=== PATIENT | female | born 1950 | race African-American/Black ===

== ENCOUNTER 2016-09-06 13:58 | Inpatient (IN) | payer OTHER ==
--- NOTE | 2016-09-06 15:04 | PDOC ---
History of Present Illness - General History Source: Patient Exam Limitations: No Limitations - History of Present Illness Initial Comments: 09/06/16 16:48 The patient is a 65 year old female, with a significant past medical history of Breast CA (s/p mastectomy), DM, and HTN who presents to the emergency department with for right lower extremity DVT after an Ultrasound with her PCP. The patient reports having a recent long travel, where she was sitting for an extended period of time. She reports 3 weeks ago traveling from [place] to [place], but notes having the pain in her LEs a couple of weeks before her trip. The patient reports having pain in both of her lower extremities along with swelling. She denies having a previous blood clots. She denies recent fevers, chills, headache or dizziness. She denies recent nausea, vomit, diarrhea or constipation. She denies recent dysuria, frequency, urgency or hematuria. She denies recent chest pain, hemoptysis, cough, or shortness of breath. Allergies: NKA Past surgical history: See HPI. Hysterectomy. Social history: Nonsmoker. Denies EtOH use and drug use. Primary Care Physician: <Pancho Thomson - Last Filed: 09/06/16 16:48> <Louie Cuellar - Last Filed: 09/07/16 08:41> - General Chief Complaint: Pain Stated Complaint: SENT BY PCP/DVT Time Seen by Provider: 09/06/16 14:25 Past History <Pancho Thomson - Last Filed: 09/06/16 16:48> - Past Medical History Cancer: Yes (Rt Breast) Diabetes: Yes HTN: Yes - Psycho/Social/Smoking Cessation Hx Suicidal Ideation: No Smoking History: Never smoked Information on smoking cessation initiated: No Hx Alcohol Use: No Drug/Substance Use Hx: No Substance Use Type: None <Louie Cuellar - Last Filed: 09/07/16 08:41> - Past Medical History Allergies/Adverse Reactions: Allergies Allergy/AdvReac Type Severity Reaction Status Date / Time No Known Allergies Allergy Verified 09/06/16 14:05 Home Medications: Ambulatory Orders Amlodipine Besylate [Norvasc -] 5 mg PO DAILY 09/06/16 Benazepril HCl 40 mg PO DAILY 09/06/16 Iron 28 mg PO DAILY 09/06/16 Metformin HCl [Glucophage] 1,000 mg PO BID 09/06/16 Tamoxifen Citrate 20 mg PO DAILY 09/06/16 Review of Systems - Review of Systems Able to Perform ROS?: Yes Comments:: 09/06/16 16:48 CONSTITUTIONAL: No reported: Fever, Chills, Diaphoresis, Generalized Weakness, Malaise, Loss of Appetite HEENT: No reported: Rhinorrhea, Nasal Congestion, Throat Pain, Throat Swelling, Difficulty Swallowing, Mouth Swelling, Ear Pain, Eye Pain, Visual Changes CARDIOVASCULAR: No reported: Chest Pain, Syncope, Palpitations, Irregular Heart Rate, Lightheadedness, Peripheral Edema RESPIRATORY: No reported: Cough, Shortness of Breath, SOB with Exertion, Orthopnea, Wheezing , Stridor, Hemoptysis GASTROINTESTINAL: No reported: Abdominal pain, Abdominal Distension, Nausea, Vomiting, Diarrhea, Constipation, Melena, Hematochezia GENITOURINARY: No reported: Dysuria, Frequency, Urgency, Hesitancy, Flank Pain, Genital Pain MUSCULOSKELETAL: +bilateral LE pain/swelling. No reported: Myalgia, Arthralgia, Joint Swelling, Back pain, Neck Pain SKIN: No reported: Rash, Itching, Pallor HEMATOLOGIC/IMMUNOLOGIC: No reported: Easy Bleeding, Easy Bruising, Lymphadenopathy, Frequent infections ENDOCRINE: No reported: Unexplained Weight Gain, Unexplained Weight Loss, Heat Intolerance , Cold Intolerance NEUROLOGIC: No reported: Headache, Focal Weakness, Paresthesias, Vertigo, Lightheadedness, Unsteady Gait, Seizure, Mental Status Changes, Incontinence PSYCHIATRIC: No reported: Anxiety, Depression <Pancho Thomson - Last Filed: 09/06/16 16:48> *Physical Exam - Vital Signs Last Vital Signs Temp Pulse Resp BP Pulse Ox 98.1 F 71 18 140/88 99 09/06/16 14:03 09/06/16 14:03 09/06/16 14:03 09/06/16 14:03 09/06/16 14:03 - Physical Exam Comments: 09/06/16 16:49 GENERAL: The patient is awake, alert, and fully oriented, Nontoxic - in no acute distress. HEAD: Normocephalic, atraumatic. EYES: extraocular movements intact, sclera anicteric, conjunctiva clear. ENT: Normal voice, Moist mucous membranes. NECK: Normal range of motion, supple LUNGS: Breath sounds equal, clear to auscultation bilaterally. No wheezes, no rhonchi, no rales. HEART: Regular rate and rhythm, without murmur, rub or gallop. ABDOMEN: Soft, nontender, normoactive bowel sounds. No guarding, no rebound.No CVA tenderness EXTREMITIES: MIld bilateral calf tenderness and edema (right is slightly worse than left) Normal range of motion. NEUROLOGICAL: No facial asymmetry, Normal speech. PSYCH: Normal mood, normal affect. SKIN: Warm, Dry, normal turgor. <Pancho Thomson - Last Filed: 09/06/16 16:48> - Vital Signs Last Vital Signs Temp Pulse Resp BP Pulse Ox 98.1 F 71 18 140/88 99 09/06/16 14:03 09/06/16 14:03 09/06/16 14:03 09/06/16 14:03 09/06/16 14:03 <Louie Cuellar - Last Filed: 09/07/16 08:41> Heart Score/ECG Review - ECG Impressions Comment:: 09/06/16 17:05 Twelve-lead EKG was performed and reviewed by me. There is normal sinus rhythm with a normal rate. Rate of 73 The axis is normal. The intervals are normal. There is normal R wave progression There are no ST or T wave abnormalities. Impression: Normal twelve-lead EKG <Louie Cuellar - Last Filed: 09/07/16 08:41> ED Treatment Course - LABORATORY CBC & Chemistry Diagram: 09/06/16 15:05 09/06/16 15:05 - ADDITIONAL ORDERS Additional order review: Laboratory Results 09/06/16 09/06/16 15:05 15:05 INR 1.07 Sodium 142 Potassium 4.5 Chloride 107 Carbon Dioxide 26 Anion Gap 9 BUN 13 Creatinine 0.8 Creat Clearance w eGFR > 60 Random Glucose 102 Calcium 9.0 Total Bilirubin 0.3 AST 16 ALT 13 Alkaline Phosphatase 41 L Total Protein 7.5 Albumin 3.6 09/06/16 15:05 RBC 3.73 MCV 87.0 MCHC 32.6 RDW 14.3 MPV 7.6 Neutrophils % 55.9 Lymphocytes % 36.0 Monocytes % 6.1 Eosinophils % 1.3 Basophils % 0.7 <Pancho Thomson - Last Filed: 09/06/16 16:48> - LABORATORY CBC & Chemistry Diagram: 09/06/16 15:05 09/07/16 06:15 <Louie Cuellar - Last Filed: 09/07/16 08:41> Medical Decision Making - Medical Decision Making 09/06/16 17:06 65-year-old female history of breast cancer sent in to the ED [place] for concern of a DVT. The patient's the patient recently drove from [place] has been having some leg swelling intermittently as well as calf pain, the patient the patient was at Dr. Estrada's office had an ultrasound that was suggestive of DVT. The patient has no other complaints including any chest pain, shortness of breath, dyspnea exertion, cough. The patient's blood work was reviewed it is unremarkable the patient's ultrasound reveals a popliteal DVT in the right lower extremity. I will I will start the patient on 120 mg of Lovenox. Awaiting call back from Dr. Hollingsworth regarding observation vs discharge with lovenox. A portion of this note was documented by scribe services under my direction. I have reviewed the details of the note, within reason, and agree with the documentation with the following case summary and management plan written by me 09/06/16 17:[address] sahni request admission to hospitalist service states the pt will have difficculty with insurance regarding getting the proper medications and acare <Louie Cuellar - Last Filed: 09/07/16 08:41> *DC/Admit/Observation/Transfer - Attestations Scribe Attestion: 09/06/16 16:49 Documentation prepared by Pancho Thomson, acting as biomedical instrument technician for Louie Cuellar MD. <Pancho Thomson - Last Filed: 09/06/16 16:48> - Discharge Dispostion Admit: Yes <Louie Cuellar - Last Filed: 09/07/16 08:41> Diagnosis at time of Disposition: DVT (deep venous thrombosis) Qualifiers: DVT location: lower extremity Affected thrombotic vein of extremity: popliteal Laterality: right Chronicity: acute Qualified Code(s): I82.431 - Acute embolism and thrombosis of right popliteal vein - Referrals
[2016-09-06 15:27] LABS: BASOPHIL 0.7 % (0-2.0); EOSINOPHIL 1.3 % (0-4.5); MCH 28.4 pg (25.7-33.7); MCHC 32.6 g/dl (32.0-36.0); MEAN PLT VOLUME 7.6 fl (7.5-11.1); NEUTROPHILS 55.9 % (42.8-82.8); PLATELET COUNT 229 K/MM3 (134-434); RDW 14.3 % (11.6-15.6); WHITE BLOOD COUNT 4.5 K/mm3 (4.0-10.0)
[2016-09-06 15:43] LABS: INR 1.07 (0.82-1.09); PROTHROMBIN TIME (PATIENT) 11.8 SEC (9.98-11.88)
[2016-09-06 15:55] LABS: ALBUMIN 3.6 g/dl (3.4-5.0); ALK PHOS 41 U/L (45-117); ANION GAP 9 (8-16); BILIRUBIN,TOTAL 0.3 mg/dL (0.2-1.0); CO2 26 mmol/L (21-32); COCKROFT - GAULT 129.9735; CREATININE 0.8 mg/dL (0.55-1.02); GLUCOSE,RANDOM 102 mg/dL (74-106); SGOT/AST 16 U/L (15-37); SGPT/ALT 13 U/L (12-78); TOT PROT 7.5 g/dl (6.4-8.2)
[2016-09-06] MEDS ORDERED: ENOXAPARIN NA (PORCINE) 120 MG/0.8 ML DISP.SYRIN SQ SCH (17:15)
[2016-09-06] MEDS ORDERED: ENOXAPARIN NA (PORCINE) 60 MG/0.6 ML DISP.SYRIN SQ ONE (17:25)
--- NOTE | 2016-09-06 19:24 | HP ---
CHIEF COMPLAINT: Right LE DVT PCP: [facility] HISTORY OF PRESENT ILLNESS: Patient is a 65 year old female with significant PMH of Breast cancer s/p mastectomy on Tamoxifene, DM, HTN who presents to ED from PCPs office after US confirmed right lower extremity DVT. Patient states she has had bilateral LE pain for last month. 2 weeks ago she drove from [place] to [place], a trip which lasted 3 days. She is on Tamoxifene s/p breast cancer with mastectomy in 2016. She denies previous history of clots or any family members who have had bleeding disorders. Patient also denies fever, SOB, chest pain, headache, diarrhea, constipation, syncope, dysuria. ER course was notable for: (1) Bilateral LE Ultrasound reveals a popliteal DVT in the right lower extremity. (2) Started on Lovenox 120mg BID (3) Discussed case with Dr Eid (covering for Dr Hollingsworth) Recent Travel: drove from [place] to [place] 2 weeks ago PAST MEDICAL HISTORY: as above PAST SURGICAL HISTORY: Mastectomy & Hysterectomy (2016) Social History: Smoking:NONE REPORTED Alcohol:NONE REPORTED Drugs: NONE REPORTED Family History: DM, HTN but NO FAMILY HISTORY OF CLOTS OR BLEEDING DISORDERS Allergies No Known Allergies Allergy (Verified 09/06/16 14:05) HOME MEDICATIONS: Home Medications Medication Instructions Recorded Amlodipine Besylate [Norvasc -] 5 mg PO DAILY 09/06/16 Benazepril HCl 40 mg PO DAILY 09/06/16 Iron 28 mg PO DAILY 09/06/16 Metformin HCl [Glucophage] 1,000 mg PO BID 09/06/16 Tamoxifen Citrate 20 mg PO DAILY 09/06/16 REVIEW OF SYSTEMS CONSTITUTIONAL: Absent: fever, chills, diaphoresis, generalized weakness, malaise, loss of appetite, weight change HEENT: Absent: rhinorrhea, nasal congestion, throat pain, throat swelling, difficulty swallowing, mouth swelling, ear pain, eye pain, visual changes CARDIOVASCULAR: Absent: chest pain, syncope, palpitations, irregular heart rate, lightheadedness , peripheral edema RESPIRATORY: Absent: cough, shortness of breath, dyspnea with exertion, orthopnea, wheezing, stridor, hemoptysis GASTROINTESTINAL: Absent: abdominal pain, abdominal distension, nausea, vomiting, diarrhea, constipation, melena, hematochezia GENITOURINARY: Absent: dysuria, frequency, urgency, hesitancy, hematuria, flank pain, genital pain MUSCULOSKELETAL: (+)PAIN & SWELLING IN BILATERAL LE Absent: myalgia, arthralgia, joint swelling, back pain, neck pain SKIN: Absent: rash, itching, pallor HEMATOLOGIC/IMMUNOLOGIC: Absent: easy bleeding, easy bruising, lymphadenopathy, frequent infections ENDOCRINE: Absent: unexplained weight gain, unexplained weight loss, heat intolerance, cold intolerance NEUROLOGIC: Absent: headache, focal weakness or paresthesias, dizziness, unsteady gait, seizure, mental status changes, bladder or bowel incontinence PSYCHIATRIC: Absent: anxiety, depression, suicidal or homicidal ideation, hallucinations. PHYSICAL EXAMINATION Vital Signs Temperature 98.1 F 09/06/16 14:03 Pulse Rate 81 09/06/16 20:38 Respiratory Rate 18 09/06/16 20:38 Blood Pressure 149/79 09/06/16 20:38 O2 Sat by Pulse Oximetry (%) 98 09/06/16 20:38 GENERAL: Awake, alert, and fully oriented, in no acute distress. HEENT: Atraumatic, EOMI, PERRLA, No lymphadenopathy, moist membranes LUNGS: Breath sounds equal, clear to auscultation bilaterally. No wheezes, and no crackles. No accessory muscle use. HEART: Regular rate and rhythm, normal S1 and S2 without murmur, rub or gallop. ABDOMEN: Soft, nontender, not distended, normoactive bowel sounds MUSCULOSKELETAL: Normal range of motion at all joints. No bony deformities or tenderness. No CVA tenderness. UPPER EXTREMITIES: 2+ pulses, warm, well-perfused. No cyanosis. No clubbing. No peripheral edema. LOWER EXTREMITIES: 2+ pulses, warm, well-perfused. (+)KAMILAH TEST bilateral LE ( +)QUINTERO TEST bilateral calves; +1 edema bilateral LE NEUROLOGICAL: Cranial nerves II-XII intact. Normal speech. Normal gait. PSYCHIATRIC: Cooperative. Good eye contact. Appropriate mood and affect. SKIN: Warm, dry, normal turgor, no rashes or lesions noted, normal capillary refill. ASSESSMENT/PLAN: 65 year old female with significant PMH of Breast cancer s/p mastectomy on Tamoxifene, DM, HTN who presents to ED from PCPs office after US confirmed right lower extremity DVT. #Right Popliteal DVT -Started on Lovenox 120mg BID (only ordered 2 doses) -discussed benefits & disadvantages of anticoagulation/Lovenox/Coumadin with patient at bedside with family present. patient will discuss further treatment options with primary team tomorrow. I will endorse final decision on anticoagulant to primary team. -PT eval -need to discuss Tamoxifene usage with her oncologist ins etting of DVT #DM -holding oral hypoglycemics -ISS w/ BGM ACHS #HTN -continue home meds: Norvasc, Benazepril Prophylaxis -Lovenox, no PPI indicated -Diabetic diet, will monitor electrolytes Visit type - Emergency Visit Emergency Visit: Yes ED Registration Date: 09/06/16 Care time: The patient presented to the Emergency Department on the above date and was hospitalized for further evaluation of their emergent condition. - New Patient This patient is new to me today: Yes Date on this admission: 09/06/16 - Critical Care Critical Care patient: No
--- NOTE | 2016-09-06 20:04 | PN ---
<Glenna Man - Last Filed: 09/06/16 21:15> Teaching Attending Note Name of Resident: Donovan Carr Problem List - Problems (1) DVT (deep venous thrombosis) Assessment/Plan: Lovenox 1mg/kg q12h exterminator termite anticoagulation therapy to be determined by primary team risk and benefits of anticoagulation therapy discussed, and patient expressed understanding and agreement. Code(s): I82.409 - ACUTE EMBOLISM AND THOMBOS UNSP DEEP VN UNSP LOWER EXTREMITY Qualifiers: DVT location: lower extremity Affected thrombotic vein of extremity: popliteal Laterality: right Chronicity: acute Qualified Code(s): I82.431 - Acute embolism and thrombosis of right popliteal vein (2) Diabetes mellitus Assessment/Plan: Hold oral antiglycemic agents FS ACHS RISS Code(s): E11.9 - TYPE 2 DIABETES MELLITUS WITHOUT COMPLICATIONS Qualifiers: Diabetes mellitus type: type 2 Diabetes mellitus complication status: without complication Diabetes mellitus exterminator termite insulin use: without exterminator termite use Qualified Code(s): E11.9 - Type 2 diabetes mellitus without complications (3) Hypertension Assessment/Plan: Amlodipine Besylate 5 mg PO DAILY Benazepril HCl 40 mg PO DAILY Code(s): I10 - ESSENTIAL (PRIMARY) HYPERTENSION Qualifiers: Hypertension type: essential hypertension Qualified Code(s): I10 - Essential (primary) hypertension <Serena Asencio - Last Filed: 09/06/16 21:30> Teaching Attending Note ATTENDING PHYSICIAN STATEMENT I saw and evaluated the patient. I reviewed the resident's note and discussed the case with the resident. I agree with the resident's findings and plan as documented. SUBJECTIVE: 65 yo F presents with RLE DVT found on an US with her PCP. The patient reports pain in both of her LE. She reports taking a 3 [address] trip to [place] two weeks ago. Patient rates the pain a 9/10 bilaterally. She notes the pain is slightly alleviated by elevating legs and exacerbated by walking. Patient denies history of bleeding. Patient denies nausea, vomiting, diarrhea, abdominal pain and headache. Patient denies chest pain, SOB and lightheadedness. PMHx: Breast CA (s/p mastectomy), DM, and HTN OBJECTIVE: Last Vital Signs Temp Pulse Resp BP Pulse Ox 98.1 F 81 18 149/79 98 09/06/16 14:03 09/06/16 20:38 09/06/16 20:38 09/06/16 20:38 09/06/16 20:38 GENERAL: Awake, alert, and fully oriented, in no acute distress HEENT: Atraumatic. PERRLA, EOMI. Moist mucosa. No JVD LUNGS: No distress, speaks full sentences, clear to auscultation bilaterally HEART: Regular rate and rhythm, normal S1 and S2, no murmurs, rubs or gallops, peripheral pulses normal and equal bilaterally. ABDOMEN: Soft, nontender, normoactive bowel sounds. No guarding, no rebound. No masses EXTREMITIES: Bilateral nonpitting edema in LE. Positive Homans sign. NEUROLOGICAL: Cranial nerves II through XII grossly intact. Normal speech, normal gait, no focal sensorimotor deficits SKIN: Warm, Dry, normal turgor, no rashes or lesions noted. CBCD WBC 4.5 K/mm3 (4.0-10.0) 09/06/16 15:05 RBC 3.73 M/mm3 (3.60-5.2) 09/06/16 15:05 Hgb 10.6 GM/dL (10.7-15.3) L 09/06/16 15:05 Hct 32.4 % (32.4-45.2) 09/06/16 15:05 MCV 87.0 fl (80-96) 09/06/16 15:05 MCHC 32.6 g/dl (32.0-36.0) 09/06/16 15:05 RDW 14.3 % (11.6-15.6) 09/06/16 15:05 Plt Count 229 K/MM3 (134-434) 09/06/16 15:05 MPV 7.6 fl (7.5-11.1) 09/06/16 15:05 CMP Sodium 142 mmol/L (136-145) 09/06/16 15:05 Potassium 4.5 mmol/L (3.5-5.1) 09/06/16 15:05 Chloride 107 mmol/L (98-107) 09/06/16 15:05 Carbon Dioxide 26 mmol/L (21-32) 09/06/16 15:05 Anion Gap 9 (8-16) 09/06/16 15:05 BUN 13 mg/dL (7-18) 09/06/16 15:05 Creatinine 0.8 mg/dL (0.55-1.02) 09/06/16 15:05 Creat Clearance w eGFR > 60 (>60) 09/06/16 15:05 Calcium 9.0 mg/dL (8.5-10.1) 09/06/16 15:05 Total Bilirubin 0.3 mg/dL (0.2-1.0) 09/06/16 15:05 AST 16 U/L (15-37) 09/06/16 15:05 ALT 13 U/L (12-78) 09/06/16 15:05 Alkaline Phosphatase 41 U/L (45-117) L 09/06/16 15:05 Total Protein 7.5 g/dl (6.4-8.2) 09/06/16 15:05 Albumin 3.6 g/dl (3.4-5.0) 09/06/16 15:05 Documentation prepared by Serena Asencio, acting as medical scientist for Glenna Man M.D.
[2016-09-06] MEDS ORDERED: ACETAMINOPHEN 325 MG TABLET (FP) PO PRN (21:21)
--- NOTE | 2016-09-06 22:09 | MSN ---
Admitting History and Physical - Primary Care Physician PCP: Din - Admission Chief Complaint: Right Lower Extremity DVT History of Present Illness: Patient is a 65 y/o F with PMHx of Breast Cancer s/p lumpectomy (2005), HTN, and DMII, who presents to the ED with the complaint of a right lower extremity DVT, confirmed via U/S in PCP's office. Patient states that she has had BL lower extremity pain for the past month. Three weeks ago, she drove from [place] to [place] by car in a trip that lasted three days. Patient had dealt with pain for three weeks before seeing her PCP today morning for a physical exam. Patient claims that the pain is sharp, in the mid-calf area, and is 9/10 in intensity in both legs. She states that the pain gets worse when she walks and when she drops her leg down and gets better when her legs are elevated. Patient was started on Tamoxifen late last year for her breast cancer for a duration of five years. Patient denies F/C, N/V, shortness of breath, chest pain , headaches, diarrhea, constipation. 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 No: AFIB, Aneurysm, Aortic Insufficiency, Aortic Stenosis, CAD, CHF, Deep Vein Thrombosis, Hyperlipdemia, LA, Mitral Insufficiency, Mitral Stenosis, Murmur, Pulmonary Hypertension, Other Pulmonary: No: Asthma, Bronchitis, Cancer, COPD, O2 Dependent, Pneumonia, Previously Intubated, Pulmonary Embolus, Pulmonary Fibrosis, Sleep Apnea, Other Gastrointestinal: No: Ascites, Cancer, Constipation, Crohn's Disease, Diverticulitis, Diverticulosis, Esophageal Varices, Gastritis, GERD, GI Bleed, Hemorrhoids, Hiatal Hernia, Inflamatory Bowel Disease, Irritable Bowel Disease, Pancreatitis, Peptic Ulcer Disease, Ulcerative Colitis, Other Hepatobiliary: No: Cirrhosis, Cholelithiasis, Cholecystitis, Choledocholithiasis , Hepatitis A, Hepatitis B, Hepatitis C, Other Renal/: No: Renal Failure, Renal Inusuff, BPH, Cancer, Hematuria, Hemodialysis , Neurogenic Bladder, Renal Calculi, UTI, Other Reproductive: Yes: Fibroids (Hysterectomy in 2002). No: Ectopic , Endometriosis, PID, Polycystic Ovary Syndrome, Postmenopausal, Other ...: No Heme/Onc: No: Anemia, B12 Deficiency, Bleeding Disorder, Cancer, Current Chemotherapy, Current Radiation Therapy, Hemochromatosis, Hypercoaguable State, Myeloproliferative Synd, Sickle Cell Disease, Sickle Cell Trait, Thrombocytopenia, Other Infectious Disease: No: AIDS, C-Diff, Herpes Zoster, HIV, MRSA, STD's, Tuberculosis, VREF, Other Psych: No: Addictions, Anxiety, Bipolar, Depression, Panic, Psychosis, Schizophrenia, Other Musculoskeletal: No: Bursitis, Chronic low back pain, Hemiparesis, Hemiplegia, Osteoarthritis, Paraplegia, Other Rheumatology: No: Fibromyalgia, Gout, Lupus, Rheumatoid Arthritis, Sarcoidosis, Vasculitis, Other ENT: No: Allergic Rhinitis, Sinusitis, Other Endocrine: Yes: Diabetes Mellitus. No: Citrus's Disease, Jessica's Disease, Diabetes Insipidus, Hyperparathyroidism, Hyperthyroidism, Hypothyroidism, Osteopenia, SIADH, Other Dermatology: No: Basal Cell, Cellulitis, Eczema, Melanoma, Psoriasis, Squamous Cell, Other - Past Surgical History Past Surgical History: Yes: Hysterectomy, Mastectomy (Lumpectomy (2016)). No: None, AAA Repair, AICD, Amputation, Appendectomy, Arthrosocopy, AV Fistula/Graft , Bariatric Surgery, Breast Biopsy, Bypass, CABG, Carotid Endarterectomy, Cataract Removal, Cholecystectomy, Colectomy, Colonoscopy, Colostomy, Craniotomy , , Cystectomy, Hernia Repair, Ileal Conduit, Ileosotomy, Joint Replacement, Kidney Transplant, Laminectomy, Liver Transplant, Nephrectomy, Oopherectomy, Orchiectomy, Permanent Pacemaker, Prostatectomy, Splenectomy, Stent, Thoracotomy, TURP, Tonsillectomy, Tubal Ligation, Upper Endoscopy, Valve Replacement, Vasectomy, Vein Stripping/Ligation - Smoking History Smoking history: Never smoked - Alcohol/Substance Use Hx Alcohol Use: No Home Medications - Allergies Allergies/Adverse Reactions: Allergies Allergy/AdvReac Type Severity Reaction Status Date / Time No Known Allergies Allergy Verified 09/06/16 14:05 - Home Medications Home Medications: Ambulatory Orders Amlodipine Besylate [Norvasc -] 5 mg PO DAILY 09/06/16 Benazepril HCl 40 mg PO DAILY 09/06/16 Iron 28 mg PO DAILY 04/12/17 Metformin HCl [Glucophage] 1,000 mg PO BID 09/06/16 Tamoxifen Citrate 20 mg PO DAILY 09/06/16 Family Disease History - Family Disease History Family Disease History: Diabetes: Mother, Heart Disease: Mother Review of Systems - Review of Systems Constitutional: reports: No Symptoms. denies: Chills, Diaphoresis, Fever, Lethargy, Loss of Appetite, Malaise, Night Sweats, Unintentional Wgt. Loss, Weakness, Other Eyes: reports: No Symptoms. denies: Blind Spots, Blurred Vision, Double Vision , Eye Pain, Floaters, Photophobia, Recent Change in Vision, Other HENT: reports: No Symptoms. denies: Difficult Swallowing, Ear Discharge, Ear Pain, Epistaxis, Gingival Bleeding, Hearing Loss, Mouth Swelling, Nasal Congestion, Ocular Prosthesis, Throat Pain, Toothache, Ringing in Ears, Other Neck: reports: No Symptoms. denies: Decreased ROM, Lumps, Pain on Movement, Stiffness, Swollen Glands, Tenderness, Other Cardiovascular: reports: No Symptoms. denies: Chest Pain, Edema, Palpitations, Shortness of Breath, Other Respiratory: reports: No Symptoms. denies: Cough, Exercise Intolerance, Hemoptysis, Orthopnea, PND, Snoring, SOB, SOB on Exertion, Wheezing, Other Gastrointestinal: reports: No Symptoms. denies: Abdominal Pain, Bloating, Constipation, Diarrhea, Dysphagia, Indigestion, Melena, Nausea, Rectal Bleeding , Vomiting, Vomiting Blood, Other Genitourinary: reports: No Symptoms. denies: Burning, Discharge, Dysuria, Flank Pain, Frequency, Hematuria, Incontinence, Lesions, Menses, Pain, Testicular Mass, Testicular Pain, Testicular Swelling, Urgency, Vaginal Bleeding , Other Breasts: reports: No Symptoms Reported. denies: See HPI, Breast Implants, Discharge from Nipple, Lumps, Pain, Skin Changes, Other Musculoskeletal: reports: No Symptoms. denies: Back Pain, Crepitus, Decreased ROM, Extremity Pain, Joint Pain, Joint Swelling, Muscle Pain, Muscle Cramps, Muscle Weakness, Other Integumentary: reports: No Symptoms. denies: Blister, Bruising, Change in Color , Eczema, Erythema, Incision, Lesions, Lump, Pallor, Pruritis, Rash, Wound, Other Neurological: reports: No Symptoms. denies: Change in LOC, Change in Speech, Confusion, Dizziness, Headache, Incoordination, Numbness, Parasthesia, Pre- Existing Deficit, Seizure, Syncope, Tremors, Unsteady Gait, Weakness, Other Endocrine: reports: No Symptoms. denies: Excessive Sweating, Flushing, Increased Hunger, Increased Thirst, Intolerance to Cold, Intolerance to Heat, Unexplained Weight Gain, Unexplained Weight Loss, Other Hematology/Lymphatic: reports: No Symptoms. denies: Easily Bruised, Excessive Bleeding, Swollen Glands, Other Psychiatric: reports: No Symptoms. denies: Altered Sleep Pattern, Anxiety, Depression, Hallucinations, Panic, Paranoia, Suicidal, Other Physical Examination Vital Signs: Vital Signs Temperature 98.6 F 09/06/16 21:56 Pulse Rate 74 09/06/16 21:56 Respiratory Rate 18 09/06/16 21:56 Blood Pressure 145/78 09/06/16 21:56 O2 Sat by Pulse Oximetry (%) 98 09/06/16 20:38 Constitutional: Yes: Well Nourished, No Distress, Calm. No: Anxious, Ashen, Cachectic, Diaphoresis, Mild Distress, Moderate Distress, Severe Distress, Obese , Pallor, Poor Hygeine, Thin, Other Eyes: Yes: WNL, Conjunctiva Clear, EOM Intact. No: Cataracts, Diplopia, Occular Prosthesis, PERRL, Ptosis, Sclera Icterus, Tearing, Other HENT: Yes: WNL, Atraumatic, Normocephalic. No: Drooling, Epistaxis, Hoarseness , Nasal Congestion, Pharyngeal Erythema, Rhinnorhea, Thrush, Tonsillar Exudate, Other Neck: Yes: WNL, Supple, Trachea Midline. No: Decreased ROM, Lymphadenopathy, Rigid, Tenderness, Thyromegaly, Other Cardiovascular: Yes: WNL, Regular Rate and Rhythm. No: Bradycardia, Tachycardia , Pulse Irregular, Bruit, JVD, Gallop, Murmur, Rub, S1, S2, S3, S4, Varicosities , Other Respiratory: Yes: WNL, Regular, CTA Bilaterally. No: Accessory Muscle Use, Bradypnea, John [place]-Wood[place], Cough, Diminished, Dullness, Hyperresonant, Intubated , Kussmaul, Mechanically Ventilated, On BiPap, On Nasal O2, On Venti-Mask, Orthopnea, Poor Air Entry, Rales, Rhonchi, SOB, SOB on Exertion, Stridor, Tachypnea, Wheezes, Other Gastrointestinal: Yes: WNL, Normal Bowel Sounds, Soft. No: Abdomen, Obese, Ascites, Distention, Hematemesis, Hemorrhoids, Hepatomegaly, Hernia, Hyperactive Bowel Sounds, Hypoactive Bowel Sounds, Melena, Palpable Mass, Pulsatile Mass, Rectal Bleeding, Splenomegaly, Tenderness, Tenderness, Epigastrium, Tenderness, Rebound, Vomiting, Other Renal/: Yes: WNL. No: Anuria, Bladder Distention, CVA Tenderness - Left, CVA Tenderness - Right, Gilman Present, Hematuria, Incontinence, Menses Present, Oliguria, Polyuria, , Scrotal Edema, Urethral Discharge, Vaginal Bleeding, Vaginal Discharge, Other Breast(s): Yes: WNL. No: Left, Right, Breast Implants, Dimpling, Discharge from Nipple, Gynecomastia, Mass, Nipple Inversion, Skin Changes, Other Musculoskeletal: Yes: WNL. No: Back Pain, Joint Stiffness, Joint Swelling, Muscle Pain, Muscle Weakness, Other Extremities: Yes: Calf Tenderness (Bilateral calf tenderness, 9/10 pain). No: WNL, Amputation, Cold, Cool, Cyanosis, Deformity, Delayed Capillary Refill, Erythema, External Rotation, Internal Rotation, Pallor, Shortened, Other Edema: No Peripheral Pulses WNL: Yes Integumentary: Yes: WNL Neurological: Yes: WNL, Alert, Oriented ...Motor Strength: WNL Psychiatric: Yes: WNL, Alert, Oriented Problem List - Problems (1) DVT (deep venous thrombosis) Code(s): I82.409 - ACUTE EMBOLISM AND THOMBOS UNSP DEEP VN UNSP LOWER EXTREMITY Qualifiers: DVT location: lower extremity Affected thrombotic vein of extremity: popliteal Laterality: right Chronicity: acute Qualified Code(s): I82.431 - Acute embolism and thrombosis of right popliteal vein (2) Diabetes mellitus Code(s): E11.9 - TYPE 2 DIABETES MELLITUS WITHOUT COMPLICATIONS Qualifiers: Diabetes mellitus type: type 2 Diabetes mellitus complication status: without complication Diabetes mellitus 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 1. Right LE DVT -Started on Lovenox 120 mg BID -Will consider starting patient on Warfarin tomorrow AM after verifying insurance coverage 2. HTN -Continue Benazepril, Norvasc 3. DMII -Hold Metformin -Sliding scale insulin -BGM, ACHS 4. Breast Cancer s/p lumpectomy (2015) -F/U patient's Hem/Onc doctor outpatient after discharge -Consider switching to new breast cancer medication due to risk of future DVTs 5. DVT Ppx -Lovenox Dispo: OBS
[2016-09-06 23:18] VITALS: BMI 45.3
[2016-09-06] MEDS: INSULIN SLIDING SCALE (NOVOLOG) 1 VIAL SQ SCH (23:36)
[2016-09-07] MEDS ORDERED: ENOXAPARIN NA (PORCINE) 120 MG/0.8 ML DISP.SYRIN SQ ONE (06:00)
[2016-09-07] MEDS: INSULIN SLIDING SCALE (NOVOLOG) 1 VIAL SQ SCH ×4 (06:32→22:12)
--- NOTE | 2016-09-07 08:03 | MSN ---
[id number] Progress Note: 65 yo female PMS Breast cancer - RT lumpectomy w/ lymph node dissection - pt had 10 nodes resected and reported 1 node being swollen, DM, HTN presents to ER with B/L LE extremity and pain X 5 wks. Pt started woresen 3 wks ago after pt drove from [place] to [place]. She was seen by PCP yesterday who diagnosed her with Pt LE DVT - diagnosed by US in office who sent he to ER. Denies previous hx of blood clots, fevers, chills, headaches, nausea, palpitations, diarrhea, constipation, dysuria, urgency, hematuria, chest pain, hemotysis, cough, difficulty walking, shortness or breath. Pt complains of dimished pain in B/L LE today; right slightly painful than left. PSH: Lumpectomy Rt Breast with 10 lypmh node dissection. Vital Signs Period Temp Pulse Resp BP Sys/Stephen Pulse Ox Last 24 Hr 98.1 F-98.8 F 70-81 18-20 117-151/54-88 98-100 Last Vital Signs Temp Pulse Resp BP Pulse Ox 98.7 F 71 20 117/54 98 09/07/16 05:00 09/07/16 05:00 09/07/16 05:00 09/07/16 05:00 09/06/16 23:19 Laboratory Results - last 24 hr 09/06/16 09/06/16 09/06/16 15:05 15:05 15:05 WBC 4.5 RBC 3.73 Hgb 10.6 L Hct 32.4 MCV 87.0 MCHC 32.6 RDW 14.3 Plt Count 229 MPV 7.6 Neutrophils % 55.9 Lymphocytes % 36.0 Monocytes % 6.1 Eosinophils % 1.3 Basophils % 0.7 INR 1.07 Sodium 142 Potassium 4.5 Chloride 107 Carbon Dioxide 26 Anion Gap 9 BUN 13 Creatinine 0.8 Creat Clearance w eGFR > 60 POC Glucometer Random Glucose 102 Calcium 9.0 Total Bilirubin 0.3 AST 16 ALT 13 Alkaline Phosphatase 41 L Total Protein 7.5 Albumin 3.6 09/06/16 09/07/16 23:29 06:31 WBC RBC Hgb Hct MCV MCHC RDW Plt Count MPV Neutrophils % Lymphocytes % Monocytes % Eosinophils % Basophils % INR Sodium Potassium Chloride Carbon Dioxide Anion Gap BUN Creatinine Creat Clearance w eGFR POC Glucometer 146 140 Random Glucose Calcium Total Bilirubin AST ALT Alkaline Phosphatase Total Protein Albumin Current Medications Generic Name Dose Route Start Last Admin Trade Name Rosalinda PRN Reason Stop Dose Admin Acetaminophen 650 mg 09/06/16 21:21 09/07/16 09:46 Tylenol - PO 650 mg Q4H PRN Administration FEVER OR PAIN Amlodipine Besylate 5 mg 09/07/16 10:00 09/07/16 09:44 Norvasc - PO 5 mg DAILY CHERYLE Administration Enoxaparin Sodium 120 mg 09/07/16 10:00 09/07/16 11:09 Lovenox - SQ 120 mg BID CHERYLE Administration Insulin Aspart 1 vial 09/06/16 22:00 09/07/16 11:12 Novolog Vial Sliding Scale - SQ Not Given ACHS [facility] Protocol Lisinopril 40 mg 09/07/16 10:00 09/07/16 09:44 Prinivil PO 40 mg DAILY CHERYLE Administration STUDIES: Vascular study: Rt leg DVT - Thrombosis popliteal vein Chest X-ray: Normal aeration, no masses, effusions, atelectasis or pneumothorax EKG: Benign findings General: pt alert and oriented to place, person, and time; in no acute distress , able to communicate w/o difficulty Head: NOrmocephalic Neck: supple, No JVD Heart: Regular rate & rythm; normal S1 and S2 Lungs: clear breath sounds Abdomen: soft non-tender; normoactive bowel sounds Ext: B/L generated edema; no redness, not warm to touch Neuro: Stretgth 5/5 upper and lower extremity; brachial and patellar reflexes 2 + MSK: no edema; 1+ peripheral pulses Assessment: 65 yo female with PMH of right lumpectomy with lymph node biopsy, DM , HTN presents w/ B/L LE extremity and pain; sent by PCP to ER for RT LE DVT diagnosed on US DVT (deep venous thrombosis) (Acute) Lovenox 120 mg -BID Have pt ambulate as tolerated Consider compression stockings Breast cancer - Tamoxifen - hold for now Speak with surgeon/oncologist about pt. regimen Anticoagulation protocol will be disscussed with oncology Diabetes mellitus- Insulin - Novolog sliding scale Hypertension Norvasc - 5 mg once daily Lisinopril - 40 mg once daily <Jesus Garcia - Last Filed: 09/07/16 18:39> Progress Note (short form) - Note Progress Note: No compression stockings at this time
[2016-09-07 08:13] LABS: MCH 28.5 pg (25.7-33.7); MCHC 33.1 g/dl (32.0-36.0); MEAN CELL VOLUME 86.3 fl (80-96); MEAN PLT VOLUME 8.5 fl (7.5-11.1); PLATELET COUNT 214 K/MM3 (134-434); RDW 14.3 % (11.6-15.6); WHITE BLOOD COUNT 3.8 K/mm3 (4.0-10.0)
[2016-09-07 08:18] LABS: INR 1.13 (0.82-1.09); PROTHROMBIN TIME (PATIENT) 12.5 SEC (9.98-11.88)
[2016-09-07 08:21] LABS: ACTIVATED PTT 33.2 SECONDS (26.9-34.4); CALCIUM 8.5 mg/dL (8.5-10.1)
[2016-09-07 08:22] LABS: COCKROFT - GAULT 129.115; CREATININE 0.8 mg/dL (0.55-1.02)
[2016-09-07] MEDS: amLODIPine BESYLATE 5 MG TABLET (FP) PO SCH (09:44)
[2016-09-07] MEDS: LISINOPRIL 20 MG TABLET (FP) PO SCH (09:44)
[2016-09-07] MEDS: ENOXAPARIN NA (PORCINE) 120 MG/0.8 ML DISP.SYRIN SQ SCH ×2 (11:09→22:12)
--- NOTE | 2016-09-07 11:40 | EKG ---
Test Reason : Blood Pressure : / mmHG Vent. Rate : 073 BPM Atrial Rate : 073 BPM P-R Int : 160 ms QRS Dur : 080 ms QT Int : 380 ms P-R-T Axes : 062 000 024 degrees QTc Int : 418 ms NORMAL SINUS RHYTHM WITH SINUS ARRHYTHMIA NORMAL ECG NO PREVIOUS ECGS AVAILABLE Confirmed by ROSA ELENA JEREZ MD ([id number]) on 09/07/2016 11:40:07 AM Referred By: Confirmed By:ROSA ELENA JEREZ MD
--- NOTE | 2016-09-07 15:46 | PN ---
Physical Exam: SUBJECTIVE: Patient seen and examined Patent resting in bed NAD. No acute events. afebrile and hemodynamically stable. states her LE hurt less. denies sob, palpitations, hemoptysis, cough or chest pain. OBJECTIVE: Vital Signs Period Temp Pulse Resp BP Sys/Stephen Pulse Ox Last 24 Hr 97.6 F-98.1 F 67-78 18-18 132-155/78-79 95 GENERAL: The patient is awake, alert, and fully oriented, in no acute distress. HEAD: Normal with no signs of trauma. EYES: PERRL, extraocular movements intact, sclera anicteric, conjunctiva clear. No ptosis. ENT: moist mucous membranes. NECK: Trachea midline, full range of motion, supple. LUNGS: Breath sounds equal, clear to auscultation bilaterally, no wheezes, no crackles, no accessory muscle use. HEART: Regular rate and rhythm, S1, S2 ABDOMEN: Soft, nontender, nondistended, normoactive bowel sounds Lower EXTREMITIES: 2+ pulses b/l, b/l edema R>L, R leg tenderness behind knee, palpable cord. NEUROLOGICAL: Cranial nerves II through XII grossly intact. Normal speech, gait not observed. PSYCH: Normal mood, normal affect. SKIN: Warm, dry Active Medications Generic Name Dose Route Start Last Admin Trade Name Freq PRN Reason Stop Dose Admin Acetaminophen 650 mg 09/06/16 21:21 09/07/16 09:46 Tylenol - PO 650 mg Q4H PRN Administration FEVER OR PAIN Amlodipine Besylate 5 mg 09/07/16 10:00 09/07/16 09:44 Norvasc - PO 5 mg DAILY CHERYLE Administration Enoxaparin Sodium 120 mg 09/07/16 10:00 09/07/16 11:09 Lovenox - SQ 120 mg BID CHERYLE Administration Insulin Aspart 1 vial 09/06/16 22:00 09/07/16 11:12 Novolog Vial Sliding Scale - SQ Not Given [facility] Protocol Lisinopril 40 mg 09/07/16 10:00 09/07/16 09:44 Prinivil PO 40 mg DAILY CHERYLE Administration ASSESSMENT/PLAN: This is a 65 year old female with significant PMH of early stage Breast CA s/p lumpectomy on Tamoxifen x 1 yr, no chemo or rads, DM, HTN who presents to ED from PCPs office after US confirmed right lower extremity DVT. Symptoms started 5 weeks ago, before her long car drive. Last dexa 1 yr ago WNL Right Popliteal DVT -symptomatic improvement -no evidence of PE -Lovenox 120mg BID -hold tamoxifen -Dr Su consult to discuss a/c while on tamoxifen which is thombogenic. -PT eval NIDDM -BGM ACHS -Sliding scale HTN -continue Norvasc, Benazepril FEN No IVF lytes stable Diabetic diet Haja. Dispo: admit to [facility] Problem List - Problems (1) DVT (deep venous thrombosis) Code(s): I82.409 - ACUTE EMBOLISM AND THOMBOS UNSP DEEP VN UNSP LOWER EXTREMITY Qualifiers: DVT location: lower extremity Affected thrombotic vein of extremity: popliteal Laterality: right Chronicity: acute Qualified Code(s): I82.431 - Acute embolism and thrombosis of right popliteal vein (2) Diabetes mellitus Code(s): E11.9 - TYPE 2 DIABETES MELLITUS WITHOUT COMPLICATIONS Qualifiers: Diabetes mellitus type: type 2 Diabetes mellitus complication status: without complication Diabetes mellitus long term care phlebotomist insulin use: without long term care phlebotomist use Qualified Code(s): E11.9 - Type 2 diabetes mellitus without complications (3) Hypertension Code(s): I10 - ESSENTIAL (PRIMARY) HYPERTENSION Qualifiers: Hypertension type: essential hypertension Qualified Code(s): I10 - Essential (primary) hypertension (4) History of breast cancer in female Code(s): Z85.3 - PERSONAL HISTORY OF MALIGNANT NEOPLASM OF BREAST Visit type - Emergency Visit Emergency Visit: Yes ED Registration Date: 09/07/16 Care time: The patient presented to the Emergency Department on the above date and was hospitalized for further evaluation of their emergent condition. - New Patient This patient is new to me today: Yes Date on this admission: 09/07/16 - Critical Care Critical Care patient: No - Discharge Referral Referred to [facility] No
--- NOTE | 2016-09-07 18:25 | PN ---
Teaching Attending Note Name of Resident: Ashely Chin ATTENDING PHYSICIAN STATEMENT I saw and evaluated the patient. I reviewed the resident's note and discussed the case with the resident. I agree with the resident's findings and plan as documented. Patient is comfortable with no acute distress, stated that her pain of her RLE is better today post Lovenox. Vital Signs Temperature 98.1 F 09/07/16 15:22 Pulse Rate 67 09/07/16 15:22 Respiratory Rate 18 09/07/16 15:22 Blood Pressure 155/79 09/07/16 15:22 O2 Sat by Pulse Oximetry (%) 95 09/07/16 14:02 CBCD WBC 3.8 K/mm3 (4.0-10.0) L 09/07/16 06:15 RBC 3.54 M/mm3 (3.60-5.2) L 09/07/16 06:15 Hgb 10.1 GM/dL (10.7-15.3) L 09/07/16 06:15 Hct 30.5 % (32.4-45.2) L 09/07/16 06:15 MCV 86.3 fl (80-96) 09/07/16 06:15 MCHC 33.1 g/dl (32.0-36.0) 09/07/16 06:15 RDW 14.3 % (11.6-15.6) 09/07/16 06:15 Plt Count 214 K/MM3 (134-434) 09/07/16 06:15 MPV 8.5 fl (7.5-11.1) D 09/07/16 06:15 CMP Sodium 142 mmol/L (136-145) 09/07/16 06:15 Potassium 4.3 mmol/L (3.5-5.1) 09/07/16 06:15 Chloride 106 mmol/L (98-107) 09/07/16 06:15 Carbon Dioxide 27 mmol/L (21-32) 09/07/16 06:15 Anion Gap 9 (8-16) 09/07/16 06:15 BUN 16 mg/dL (7-18) D 09/07/16 06:15 Creatinine 0.8 mg/dL (0.55-1.02) 09/07/16 06:15 Creat Clearance w eGFR > 60 (>60) 09/06/16 15:05 Random Glucose 137 mg/dL (74-106) H D 09/07/16 06:15 Calcium 8.5 mg/dL (8.5-10.1) 09/07/16 06:15 Total Bilirubin 0.3 mg/dL (0.2-1.0) 09/06/16 15:05 AST 16 U/L (15-37) 09/06/16 15:05 ALT 13 U/L (12-78) 09/06/16 15:05 Alkaline Phosphatase 41 U/L (45-117) L 09/06/16 15:05 Total Protein 7.5 g/dl (6.4-8.2) 09/06/16 15:05 Albumin 3.6 g/dl (3.4-5.0) 09/06/16 15:05 Current Medications Generic Name Dose Route Start Last Admin Trade Name Freq PRN Reason Stop Dose Admin Acetaminophen 650 mg 09/06/16 21:21 09/07/16 09:46 Tylenol - PO 650 mg Q4H PRN Administration FEVER OR PAIN Amlodipine Besylate 5 mg 09/07/16 10:00 09/07/16 09:44 Norvasc - PO 5 mg DAILY CHERYLE Administration Enoxaparin Sodium 120 mg 09/07/16 10:00 09/07/16 11:09 Lovenox - SQ 120 mg BID CHERYLE Administration Insulin Aspart 1 vial 09/06/16 22:00 09/07/16 17:03 Novolog Vial Sliding Scale - SQ 2 units ACHS CHERYLE Administration Protocol Lisinopril 40 mg 09/07/16 10:00 09/07/16 09:44 Prinivil PO 40 mg DAILY CHERYLE Administration Home Medications Medication Instructions Recorded Amlodipine Besylate [Norvasc -] 5 mg PO DAILY 09/06/16 Benazepril HCl 40 mg PO DAILY 09/06/16 Iron 28 mg PO DAILY 09/06/16 Metformin HCl [Glucophage] 1,000 mg PO BID 09/06/16 Tamoxifen Citrate 20 mg PO DAILY 09/06/16 NECK: Trachea midline, full range of motion, supple. LUNGS: Breath sounds equal, clear to auscultation bilaterally, no wheezes, no crackles, no accessory muscle use. HEART: Regular rate and rhythm, S1, S2 ABDOMEN: Soft, nontender, nondistended, normoactive bowel sounds Lower EXTREMITIES: 2+ pulses b/l, b/l edema R>L, R leg tenderness behind knee, palpable cord. NEUROLOGICAL: Cranial nerves II through XII grossly intact. Normal speech, gait not observed. ASSESSMENT AND PLAN: This is a 65 year old female with significant PMHx of early stage Breast CA s/p lumpectomy on Tamoxifen x 1 yr, no chemo or rads, DM, HTN who presents to ED from PCPs office after US confirmed right lower extremity DVT. Symptoms started 5 weeks ago, before her long car drive. Last dexa scan 1 yr ago WNL # Acute Right Popliteal DVT on Lovenox 120mg BID, hold tamoxifen since it is thrombogenic ,will start the patient on Arimidex 1mg daily instead, also will give her coumadin 5mg just in case her insurance doesn't cover the meds. discussed with will see the patient in [place]. #T2DM BGM ACHS with Sliding scale # HTN on Norvasc, Benazepril continue DVT treatment: full dose Lovenox
[2016-09-07] MEDS ORDERED: WARFARIN NA 5 MG TABLET (UD) PO ONE (18:36)
[2016-09-07] MEDS ORDERED: ACETAMINOPHEN 325 MG TABLET (FP) PO PRN (18:36)
[2016-09-07] MEDS ORDERED: PT OWN MED DRAWER 7, Y5N ONE (22:01)
--- NOTE | 2016-09-07 22:53 | CONSULT ---
Consult - text type - Consultation Consultation Note: The patient is a 65 year old female, with a significant past medical history of Breast CA (s/p mastectomy), DM, and HTN who presents to the emergency department with for right lower extremity DVT after an Ultrasound with her PCP. The patient reports having a recent long travel, where she was sitting for an extended period of time. She reports 3 weeks ago traveling from [place] to [place], by car,but notes having the pain in her LEs a couple of weeks before her trip. The patient reports having pain in both of her lower extremities along with swelling. She denies having a previous blood clots. She denies recent fevers, chills, headache or dizziness. She denies recent nausea, vomit, diarrhea or constipation. She denies recent dysuria, frequency, urgency or hematuria. She denies recent chest pain, hemoptysis, cough, or shortness of breath. Allergies: NKA Past surgical history: See HPI. Hysterectomy. Social history: Nonsmoker. Denies EtOH use and drug use. Primary Care Physician: - Past Medical History Cancer: Yes (Rt Breast) Diabetes: Yes HTN: Yes - Psycho/Social/Smoking Cessation Hx Smoking History: Never smoked - Past Medical History Allergies/Adverse Reactions: Allergies Allergy/AdvReac Type Severity Reaction Status Date / Time No Known Allergies Allergy Verified 09/06/16 14:05 Home Medications: Ambulatory Orders Amlodipine Besylate [Norvasc -] 5 mg PO DAILY 09/06/16 Benazepril HCl 40 mg PO DAILY 09/06/16 Iron 28 mg PO DAILY 09/06/16 Metformin HCl [Glucophage] 1,000 mg PO BID 09/06/16 Tamoxifen Citrate 20 mg PO DAILY 09/06/16 Active Medications Generic Name Dose Route Start Last Admin Trade Name Freq PRN Reason Stop Dose Admin Acetaminophen 650 mg 09/07/16 18:36 09/07/16 22:19 Tylenol - PO 650 mg Q6H PRN Administration FEVER OR PAIN Amlodipine Besylate 5 mg 09/07/16 10:00 09/07/16 09:44 Norvasc - PO 5 mg DAILY CHERYLE Administration Anastrozole 1 mg 09/08/16 10:00 Arimidex - PO DAILY CHERYLE Enoxaparin Sodium 120 mg 09/07/16 10:00 09/07/16 22:12 Lovenox - SQ 120 mg BID CHERYLE Administration Insulin Aspart 1 vial 09/06/16 22:00 09/08/16 06:51 Novolog Vial Sliding Scale - SQ Not Given ACHS [facility] Protocol Lisinopril 40 mg 09/07/16 10:00 09/07/16 09:44 Prinivil PO 40 mg DAILY CHERYLE Administration AFVSS Cor: RSR, No murmurs, No gallops Lungs: Clear to P&A Abd: Soft, Normal bowel sounds, Ext:No significant edema Labs reviewed A/P 65-year-old female history of breast cancer sent in to the ED ID for concern of a DVT. The patient recently drove from [place] and has been having some leg swelling intermittently as well as calf pain. RLE popliteal DVT --?? provoked by car ride /tamoxifen normal coags/renal function/hepatic function could consider switching to NOAC--eliquis 10mg bid for 7 days and theen 5 mg bid Tamoxifen stopped would discuss with Jessika Ramirez her breast surgeon regarding the details of her breast cancer, treated at [place] and considering switching to arimidex. Per patient very early stage ?insitu. ? LCIS s/p lumpectomy. No RT/chemo
--- NOTE | 2016-09-08 06:40 | MSN ---
Progress Note (short form) - Note Progress Note: 65 yo female PMS Breast cancer - RT lumpectomy w/ lymph node dissection - pt had 10 nodes resected, DM, HTN presents to ER with B/L LE extremity and pain X 5 wks. Pt started worening 3 weeks ago after long car drive. No acute events overnight. Still reports mild pain behind right knee. Denies nausea, SOB, hemotysis, cough. Last Vital Signs Temp Pulse Resp BP Pulse Ox 97.7 F 68 20 113/59 95 09/08/16 06:00 09/08/16 06:00 09/08/16 06:00 09/08/16 06:00 09/07/16 14:02 Laboratory Results - last 24 hr 09/07/16 09/07/16 09/07/16 06:15 06:15 06:15 WBC 3.8 L RBC 3.54 L Hgb 10.1 L Hct 30.5 L MCV 86.3 MCHC 33.1 RDW 14.3 Plt Count 214 MPV 8.5 D INR 1.13 PTT (Actin FS) 33.2 Sodium 142 Potassium 4.3 Chloride 106 Carbon Dioxide 27 Anion Gap 9 BUN 16 D Creatinine 0.8 POC Glucometer Random Glucose 137 H D Calcium 8.5 09/07/16 09/07/16 09/07/16 06:31 11:09 16:54 WBC RBC Hgb Hct MCV MCHC RDW Plt Count MPV INR PTT (Actin FS) Sodium Potassium Chloride Carbon Dioxide Anion Gap BUN Creatinine POC Glucometer 140 134 177 Random Glucose Calcium 09/07/16 22:10 WBC RBC Hgb Hct MCV MCHC RDW Plt Count MPV INR PTT (Actin FS) Sodium Potassium Chloride Carbon Dioxide Anion Gap BUN Creatinine POC Glucometer 137 Random Glucose Calcium Current Medications Generic Name Dose Route Start Last Admin Trade Name Freq PRN Reason Stop Dose Admin Acetaminophen 650 mg 09/07/16 18:36 09/07/16 22:19 Tylenol - PO 650 mg Q6H PRN Administration FEVER OR PAIN Amlodipine Besylate 5 mg 09/07/16 10:00 09/07/16 09:44 Norvasc - PO 5 mg DAILY CHERYLE Administration Anastrozole 1 mg 09/08/16 10:00 Arimidex - PO DAILY CHERYLE Enoxaparin Sodium 120 mg 09/07/16 10:00 09/07/16 22:12 Lovenox - SQ 120 mg BID CHERYLE Administration Insulin Aspart 1 vial 09/06/16 22:00 09/07/16 22:12 Novolog Vial Sliding Scale - SQ Not Given ACHS [facility] Protocol Lisinopril 40 mg 09/07/16 10:00 09/07/16 09:44 Prinivil PO 40 mg DAILY CHERYLE Administration General: pt alert and oriented to place, person, and time Head: NOrmocephalic Neck: supple, No JVD Heart: Regular rate & rythm; normal S1 and S2 Lungs: clear breath sounds; no wheezing Abdomen: soft non-tender; normoactive bowel sounds Neuro: Strength 5/5 upper and lower extremity; brachial and patellar reflexes 2 + MSK: mild TTP right popliteal fossa, B/L LE edema - RT > LT but improve since yesterday; 2+ peripheral pulses Assessment: 65 yo female with PMH of right lumpectomy with lymph node biopsy, DM , HTN presents w/ B/L LE extremity and pain; sent by PCP to ER for RT LE DVT diagnosed on US DVT (deep venous thrombosis) (Acute) Continue Lovenox 120 mg -BID Trend INR until in therapeutic range Breast cancer - Start Arimidex 1 mg po daily Diabetes mellitus- Insulin - Novolog sliding scale Hypertension Norvasc - 5 mg once daily Lisinopril - 40 mg once daily
[2016-09-08] MEDS: INSULIN SLIDING SCALE (NOVOLOG) 1 VIAL SQ SCH ×4 (06:51→22:29)
[2016-09-08 07:20] LABS: MCH 28.7 pg (25.7-33.7); MCHC 32.8 g/dl (32.0-36.0); MEAN CELL VOLUME 87.6 fl (80-96); PLATELET COUNT 212 K/MM3 (134-434); RDW 14.8 % (11.6-15.6); WHITE BLOOD COUNT 4.6 K/mm3 (4.0-10.0)
[2016-09-08] MEDS ORDERED: INSULIN (NOVOLOG) ASPART 100 UNITS/ML 10ML VIAL ONE (08:05)
[2016-09-08] MEDS ORDERED: PT OWN MED DRAWER 7, Y5N ONE ×2 (09:31→20:53)
[2016-09-08] MEDS: ANASTROZOLE 1 MG TABLET PO SCH (09:46)
[2016-09-08] MEDS: LISINOPRIL 20 MG TABLET (FP) PO SCH (09:47)
[2016-09-08] MEDS: ENOXAPARIN NA (PORCINE) 120 MG/0.8 ML DISP.SYRIN SQ SCH ×2 (09:47→22:29)
[2016-09-08] MEDS: amLODIPine BESYLATE 5 MG TABLET (FP) PO SCH (09:47)
--- NOTE | 2016-09-08 14:45 | PN ---
Addendum entered and electronically signed by Ashely Chin RES 09/08/16 15: 04: Spoke with Dr Bill. 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 Agrees with Arimidex for now but recommends f/u with him to discuss further treatment. Recommends DEXA and Ca/Vit D supplements. Original Note: Physical Exam: SUBJECTIVE: Patient seen and examined Patent resting in bed NAD. No acute events. afebrile and hemodynamically stable. states her LE hurt less. denies sob, palpitations, hemoptysis, cough or chest pain. OBJECTIVE: Vital Signs Period Temp Pulse Resp BP Sys/Stephen Pulse Ox Last 24 Hr 97.7 F-98.6 F 67-99 18-20 113-155/59-83 99 GENERAL: The patient is awake, alert, and fully oriented, in no acute distress. HEAD: Normal with no signs of trauma. EYES: PERRL, extraocular movements intact, sclera anicteric, conjunctiva clear. No ptosis. ENT: moist mucous membranes. NECK: Trachea midline, full range of motion, supple. LUNGS: Breath sounds equal, clear to auscultation bilaterally, no wheezes, no crackles, no accessory muscle use. HEART: Regular rate and rhythm, S1, S2 ABDOMEN: Soft, nontender, nondistended, normoactive bowel sounds Lower EXTREMITIES: 2+ pulses b/l, b/l edema R>L, R leg tenderness behind knee, palpable cord. NEUROLOGICAL: Cranial nerves II through XII grossly intact. Normal speech, gait not observed. PSYCH: Normal mood, normal affect. SKIN: Warm, dry Laboratory Results - last 24 hr 09/07/16 09/07/16 09/08/16 16:54 22:10 06:40 WBC 4.6 RBC 3.63 Hgb 10.4 L Hct 31.8 L MCV 87.6 MCHC 32.8 RDW 14.8 Plt Count 212 MPV 8.0 POC Glucometer 177 137 09/08/16 09/08/16 06:50 11:13 WBC RBC Hgb Hct MCV MCHC RDW Plt Count MPV POC Glucometer 140 144 Active Medications Generic Name Dose Route Start Last Admin Trade Name Freq PRN Reason Stop Dose Admin Acetaminophen 650 mg 09/07/16 18:36 09/07/16 22:19 Tylenol - PO 650 mg Q6H PRN Administration FEVER OR PAIN Amlodipine Besylate 5 mg 09/07/16 10:00 09/08/16 09:47 Norvasc - PO 5 mg DAILY CHERYLE Administration Anastrozole 1 mg 09/08/16 10:00 09/08/16 09:46 Arimidex - PO 1 mg DAILY CHERYLE Administration Enoxaparin Sodium 120 mg 09/07/16 10:00 09/08/16 09:47 Lovenox - SQ 120 mg BID CHERYLE Administration Insulin Aspart 1 vial 09/06/16 22:00 09/08/16 11:14 Novolog Vial Sliding Scale - SQ Not Given ACHS [facility] Protocol Lisinopril 40 mg 09/07/16 10:00 09/08/16 09:47 Prinivil PO 40 mg DAILY CHERYLE Administration ASSESSMENT/PLAN: This is a 65 year old female with significant PMH of early stage Breast CA s/p lumpectomy on Tamoxifen x 1 yr, no chemo or rads, DM, HTN who presents to ED from PCPs office after US confirmed right lower extremity DVT. Symptoms started 5 weeks ago, before her long car drive. Last dexa 1 yr ago WNL Right Popliteal DVT in patient with breast CA hx and tamoxifen use -symptomatic improvement -no evidence of PE -Lovenox 120mg BID with coumadin bridge 5 mg; could switch to NOAC but not revesible/ bleeding risk. -tamoxifen stopped, armidex started -Dr Olsen on case -will contact oncologist Dr Jaxon Bill in [place] for breast CA details -f/u INR NIDDM -BGM ACHS -Sliding scale HTN -continue Norvasc, Benazepril FEN No IVF lytes stable Diabetic diet Haja. 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 - New Patient This patient is new to me today: No - Critical Care Critical Care patient: No - Discharge Referral Referred to [facility] No
--- NOTE | 2016-09-08 14:54 | PN ---
Teaching Attending Note Name of Resident: Ashely Chin ATTENDING PHYSICIAN STATEMENT I saw and evaluated the patient. I reviewed the resident's note and discussed the case with the resident. I agree with the resident's findings and plan as documented. Comfortable with decreased swelling of lower extremities, no nausea or vomitng, no shortness of breath. Vital Signs Temperature 98.2 F 09/08/16 14:20 Pulse Rate 72 09/08/16 14:20 Respiratory Rate 20 09/08/16 14:20 Blood Pressure 117/73 09/08/16 14:20 O2 Sat by Pulse Oximetry (%) 99 09/08/16 09:00 CBCD WBC 4.6 K/mm3 (4.0-10.0) 09/08/16 06:40 RBC 3.63 M/mm3 (3.60-5.2) 09/08/16 06:40 Hgb 10.4 GM/dL (10.7-15.3) L 09/08/16 06:40 Hct 31.8 % (32.4-45.2) L 09/08/16 06:40 MCV 87.6 fl (80-96) 09/08/16 06:40 MCHC 32.8 g/dl (32.0-36.0) 09/08/16 06:40 RDW 14.8 % (11.6-15.6) 09/08/16 06:40 Plt Count 212 K/MM3 (134-434) 09/08/16 06:40 MPV 8.0 fl (7.5-11.1) 09/08/16 06:40 CMP Sodium 142 mmol/L (136-145) 09/07/16 06:15 Potassium 4.3 mmol/L (3.5-5.1) 09/07/16 06:15 Chloride 106 mmol/L (98-107) 09/07/16 06:15 Carbon Dioxide 27 mmol/L (21-32) 09/07/16 06:15 Anion Gap 9 (8-16) 09/07/16 06:15 BUN 16 mg/dL (7-18) D 09/07/16 06:15 Creatinine 0.8 mg/dL (0.55-1.02) 09/07/16 06:15 Creat Clearance w eGFR > 60 (>60) 04/12/17 15:05 Random Glucose 137 mg/dL (74-106) H D 09/07/16 06:15 Calcium 8.5 mg/dL (8.5-10.1) 09/07/16 06:15 Total Bilirubin 0.3 mg/dL (0.2-1.0) 09/06/16 15:05 AST 16 U/L (15-37) 09/06/16 15:05 ALT 13 U/L (12-78) 09/06/16 15:05 Alkaline Phosphatase 41 U/L (45-117) L 09/06/16 15:05 Total Protein 7.5 g/dl (6.4-8.2) 09/06/16 15:05 Albumin 3.6 g/dl (3.4-5.0) 09/06/16 15:05 Current Medications Generic Name Dose Route Start Last Admin Trade Name Freq PRN Reason Stop Dose Admin Acetaminophen 650 mg 09/07/16 18:36 09/07/16 22:19 Tylenol - PO 650 mg Q6H PRN Administration FEVER OR PAIN Amlodipine Besylate 5 mg 09/07/16 10:00 09/08/16 09:47 Norvasc - PO 5 mg DAILY CHERYLE Administration Anastrozole 1 mg 09/08/16 10:00 09/08/16 09:46 Arimidex - PO 1 mg DAILY CHERYLE Administration Enoxaparin Sodium 120 mg 09/07/16 10:00 09/08/16 09:47 Lovenox - SQ 120 mg BID CHERYLE Administration Insulin Aspart 1 vial 09/06/16 22:00 09/08/16 11:14 Novolog Vial Sliding Scale - SQ Not Given [facility] Protocol Lisinopril 40 mg 09/07/16 10:00 09/08/16 09:47 Prinivil PO 40 mg DAILY CHERYLE Administration Home Medications Medication Instructions Recorded Amlodipine Besylate [Norvasc -] 5 mg PO DAILY 09/06/16 Benazepril HCl 40 mg PO DAILY 09/06/16 Iron 28 mg PO DAILY 09/06/16 Metformin HCl [Glucophage] 1,000 mg PO BID 09/06/16 Tamoxifen Citrate 20 mg PO DAILY 09/06/16 LE: Decreased swelling of RLE ASSESSMENT AND PLAN: This is a 65 year old female with significant PMHx of early stage Breast CA s/p lumpectomy on Tamoxifen x 1 yr, no chemo or rads, DM, HTN who presents to ED from PCPs office after US confirmed right lower extremity DVT. Symptoms started 5 weeks ago, before her long car drive. Last dexa scan 1 yr ago WNL # Acute Right Popliteal DVT provoked due Tamoxifen/ Long drive from [place] ; on Lovenox 120mg BID, hold tamoxifen since it is thrombogenic ,will start the patient on Arimidex 1mg daily instead, also will give her coumadin 7.5mg today just in case her insurance doesn't cover the meds. discussed with agrees with the plan. Repeat Pt/INR in am #T2DM BGM ACHS with Sliding scale # HTN on Norvasc, Benazepril continue DVT treatment: full dose Lovenox INR, PTT INR 1.13 (0.82-1.09) 09/07/16 06:15
--- NOTE | 2016-09-08 16:15 | PN ---
Progress Note (short form) - Note Progress Note: Patient seen and examined. Likely provoked DVT secondary to prolonged car trip and tamoxifen therapy. Last Vital Signs Temp Pulse Resp BP Pulse Ox 98.2 F 72 20 117/73 99 09/08/16 14:20 09/08/16 14:20 09/08/16 14:20 09/08/16 14:20 09/08/16 09:00 Obese Breasts: pendulous - RUQ scar Cor: RSR, No murmurs, No gallops Lungs: Clear to P&A Abd: Soft, Normal bowel sounds, No organomegaly Ext:LE edema Skin: No rashes, Integument intact CBC, BMP 09/08/16 06:40 09/07/16 06:15 Current Medications Generic Name Dose Route Start Last Admin Trade Name Freq PRN Reason Stop Dose Admin Acetaminophen 650 mg 09/07/16 18:36 09/07/16 22:19 Tylenol - PO 650 mg Q6H PRN Administration FEVER OR PAIN Amlodipine Besylate 5 mg 09/07/16 10:00 09/08/16 09:47 Norvasc - PO 5 mg DAILY CHERYLE Administration Anastrozole 1 mg 09/08/16 10:00 09/08/16 09:46 Arimidex - PO 1 mg DAILY CHERYLE Administration Enoxaparin Sodium 120 mg 09/07/16 10:00 09/08/16 09:47 Lovenox - SQ 120 mg BID CHERYLE Administration Insulin Aspart 1 vial 09/06/16 22:00 09/08/16 11:14 Novolog Vial Sliding Scale - SQ Not Given ACHS [facility] OF [facility] Protocol Lisinopril 40 mg 09/07/16 10:00 09/08/16 09:47 Prinivil PO 40 mg DAILY CHERYLE Administration Warfarin Sodium 7.5 mg 09/08/16 18:00 Coumadin - PO 09/08/16 18:01 ONCE@1800 ONE Impression: Provoked DVT ( car trip, tamoxifen, ) Low grade breast ca- patient had lumpectomy, no RT, no axillary dissection. This suggests that she did not have invasive ca. Possibilities would include DCIS ( occasionally treated with lumpectomy alone, more commonly, lumpectomy and RT +/- tamoxifen) --Need pathology. Alternatively, patient could have had LCIS which was a finding when abnormal mammogram was noted. This is not a malignancy but rather a harbinger of malignancy with a 10 year incidence of the development of invasive ca at 15% in either breast. This is often treated with Tamoxifen which decreases recurrence rate of 50% in the ipsilateral and contralateral breast. , Currently on Lovenox-- could bridge to coumadin for 3 months.
[2016-09-08] MEDS ORDERED: WARFARIN NA 7.5 MG TABLET (FP) PO ONE (18:00)
[2016-09-09] MEDS: INSULIN SLIDING SCALE (NOVOLOG) 1 VIAL SQ SCH ×4 (06:37→21:47)
[2016-09-09 09:02] LABS: MCH 28.8 pg (25.7-33.7); MCHC 33.1 g/dl (32.0-36.0); MEAN CELL VOLUME 87.1 fl (80-96); PLATELET COUNT 226 K/MM3 (134-434); RDW 14.8 % (11.6-15.6); WHITE BLOOD COUNT 3.5 K/mm3 (4.0-10.0)
--- NOTE | 2016-09-09 09:05 | PN ---
Physical Exam: SUBJECTIVE: Patient seen and examined Patient is feeling better, with no acute distress. Swelling and the pain of her leg is improving. OBJECTIVE: Vital Signs Temperature 98.6 F 09/08/16 22:00 Pulse Rate 68 09/08/16 22:00 Respiratory Rate 18 09/08/16 22:00 Blood Pressure 116/64 09/08/16 22:00 O2 Sat by Pulse Oximetry (%) 97 09/08/16 21:00 GENERAL: The patient is awake, alert, and fully oriented, in no acute distress. HEAD: Normal with no signs of trauma. EYES: PERRL, extraocular movements intact, sclera anicteric, conjunctiva clear. ENT: moist mucous membranes. NECK: Trachea midline, full range of motion, supple. LUNGS: Breath sounds equal, clear to auscultation bilaterally, no wheezes, no crackles, no accessory muscle use. HEART: Regular rate and rhythm, S1, S2 ABDOMEN: Soft, nontender, nondistended, normoactive bowel sounds Lower EXTREMITIES: 2+ pulses b/l, b/l edema R>L, R leg tenderness improved. NEUROLOGICAL: Cranial nerves II through XII grossly intact. Normal speech. PSYCH: Normal mood, normal affect. SKIN: Warm, dry, moist mucus membrane CBCD WBC 4.6 K/mm3 (4.0-10.0) 09/08/16 06:40 RBC 3.63 M/mm3 (3.60-5.2) 09/08/16 06:40 Hgb 10.4 GM/dL (10.7-15.3) L 09/08/16 06:40 Hct 31.8 % (32.4-45.2) L 09/08/16 06:40 MCV 87.6 fl (80-96) 09/08/16 06:40 MCHC 32.8 g/dl (32.0-36.0) 09/08/16 06:40 RDW 14.8 % (11.6-15.6) 09/08/16 06:40 Plt Count 212 K/MM3 (134-434) 09/08/16 06:40 MPV 8.0 fl (7.5-11.1) 09/08/16 06:40 CMP Sodium 142 mmol/L (136-145) 09/07/16 06:15 Potassium 4.3 mmol/L (3.5-5.1) 09/07/16 06:15 Chloride 106 mmol/L (98-107) 09/07/16 06:15 Carbon Dioxide 27 mmol/L (21-32) 09/07/16 06:15 Anion Gap 9 (8-16) 09/07/16 06:15 BUN 16 mg/dL (7-18) D 09/07/16 06:15 Creatinine 0.8 mg/dL (0.55-1.02) 09/07/16 06:15 Creat Clearance w eGFR > 60 (>60) 09/06/16 15:05 Random Glucose 137 mg/dL (74-106) H D 09/07/16 06:15 Calcium 8.5 mg/dL (8.5-10.1) 09/07/16 06:15 Total Bilirubin 0.3 mg/dL (0.2-1.0) 09/06/16 15:05 AST 16 U/L (15-37) 09/06/16 15:05 ALT 13 U/L (12-78) 09/06/16 15:05 Alkaline Phosphatase 41 U/L (45-117) L 09/06/16 15:05 Total Protein 7.5 g/dl (6.4-8.2) 09/06/16 15:05 Albumin 3.6 g/dl (3.4-5.0) 09/06/16 15:05 Laboratory Results - last 24 hr 09/08/16 09/08/16 09/08/16 11:13 16:29 22:28 POC Glucometer 144 181 158 09/09/16 06:36 POC Glucometer 111 Active Medications Generic Name Dose Route Start Last Admin Trade Name Freq PRN Reason Stop Dose Admin Acetaminophen 650 mg 09/07/16 18:36 09/07/16 22:19 Tylenol - PO 650 mg Q6H PRN Administration FEVER OR PAIN Amlodipine Besylate 5 mg 09/07/16 10:00 09/08/16 09:47 Norvasc - PO 5 mg DAILY CHERYLE Administration Anastrozole 1 mg 09/08/16 10:00 09/08/16 09:46 Arimidex - PO 1 mg DAILY CHERYLE Administration Enoxaparin Sodium 120 mg 09/07/16 10:00 09/08/16 22:29 Lovenox - SQ 120 mg BID CHERYLE Administration Insulin Aspart 1 vial 09/06/16 22:00 09/09/16 06:37 Novolog Vial Sliding Scale - SQ Not Given ACHS [facility] Protocol Lisinopril 40 mg 09/07/16 10:00 09/08/16 09:47 Prinivil PO 40 mg DAILY CHERYLE Administration Home Medications Medication Instructions Recorded Amlodipine Besylate [Norvasc -] 5 mg PO DAILY 09/06/16 Benazepril HCl 40 mg PO DAILY 09/06/16 Iron 28 mg PO DAILY 09/06/16 Metformin HCl [Glucophage] 1,000 mg PO BID 09/06/16 Tamoxifen Citrate 20 mg PO DAILY 09/06/16 Laboratory Tests 09/09/16 07:30 INR 1.16 H LE: Decreased swelling of RLE ASSESSMENT AND PLAN: This is a 65 year old female with significant PMHx of early stage Breast CA s/p lumpectomy on Tamoxifen x 1 yr, no chemo or rads, DM, HTN who presents to ED from PCPs office after US confirmed right lower extremity DVT. Symptoms started 5 weeks ago, before her long car drive. Last dexa scan 1 yr ago WNL # Acute Right Popliteal DVT provoked due Tamoxifen/ Long drive from [place] ; on Lovenox 120mg BID, hold tamoxifen since it is thrombogenic ,started the patient on Arimidex 1mg daily instead, also will give her coumadin 7.5mg today to bright with Lovenox . discussed with agrees with the plan. Repeat Pt /INR in am #T2DM BGM ACHS with Sliding scale # HTN on Norvasc, Benazepril continue DVT treatment: full dose Lovenox Visit type - Emergency Visit Emergency Visit: Yes ED Registration Date: 09/07/16 Care time: The patient presented to the Emergency Department on the above date and was hospitalized for further evaluation of their emergent condition. - New Patient This patient is new to me today: No - Critical Care Critical Care patient: No
[2016-09-09 09:16] LABS: INR 1.16 (0.82-1.09); PROTHROMBIN TIME (PATIENT) 12.8 SEC (9.98-11.88)
[2016-09-09] MEDS ORDERED: PT OWN MED DRAWER 7, Y5N ONE ×3 (09:27→20:58)
[2016-09-09] MEDS: LISINOPRIL 20 MG TABLET (FP) PO SCH (09:33)
[2016-09-09] MEDS: ANASTROZOLE 1 MG TABLET PO SCH ×2 (09:33→21:47)
[2016-09-09] MEDS: ENOXAPARIN NA (PORCINE) 120 MG/0.8 ML DISP.SYRIN SQ SCH ×2 (09:33→21:47)
[2016-09-09] MEDS: amLODIPine BESYLATE 5 MG TABLET (FP) PO SCH (09:33)
--- NOTE | 2016-09-09 14:43 | PN ---
Progress Note (short form) - Note Progress Note: Patient seen and examined. No complaints on ROS No chest pains, SOB, dyspnea, calf pain,GI complaints complaints. On Lovenox Off tamoxifen Last Vital Signs Temp Pulse Resp BP Pulse Ox 98.5 F 62 18 107/61 98 09/09/16 10:00 09/09/16 10:35 09/09/16 10:00 09/09/16 10:00 09/09/16 10:35 HEENT: BRENDA, EOM Intact Oropharynx: No thrush, No mucositis Neck: Supple Nodes: Without adenopathy Breasts: Right upper outer quadrant scar Cor: RSR, No murmurs, No gallops Lungs: Clear to P&A Abd: Soft, Normal bowel sounds, No organomegaly Ext:LE edema- no erythema, pain or tenderness Skin: No rashes, Integument intact CBC, BMP 09/09/16 07:30 09/07/16 06:15 Current Medications Generic Name Dose Route Start Last Admin Trade Name Freq PRN Reason Stop Dose Admin Acetaminophen 650 mg 09/07/16 18:36 09/07/16 22:19 Tylenol - PO 650 mg Q6H PRN Administration FEVER OR PAIN Amlodipine Besylate 5 mg 09/07/16 10:00 09/09/16 09:33 Norvasc - PO 5 mg DAILY CHERYLE Administration Anastrozole 1 mg 09/08/16 10:00 09/09/16 09:33 Arimidex - PO Not Given DAILY CHERYLE Enoxaparin Sodium 120 mg 09/07/16 10:00 09/09/16 09:33 Lovenox - SQ 120 mg BID CHERYLE Administration Insulin Aspart 1 vial 09/06/16 22:00 09/09/16 12:15 Novolog Vial Sliding Scale - SQ 2 units ACHS CHERYLE Administration Protocol Lisinopril 40 mg 09/07/16 10:00 09/09/16 09:33 Prinivil PO 40 mg DAILY CHERYLE Administration Impression: Provoked DVT secondary to tamoxifen, long car ride, Tamoxifen---> arimidex ( For DCIS or LCIS prophylaxis- 5 years total) Bridge lovenox- coumadin Duration- 3 months.
[2016-09-10] MEDS: INSULIN SLIDING SCALE (NOVOLOG) 1 VIAL SQ SCH ×4 (06:20→22:07)
[2016-09-10] MEDS ORDERED: INSULIN DETEMIR 100 UNITS/ML MDV SQ ONE (06:23)
[2016-09-10] MEDS ORDERED: INSULIN (NOVOLOG) ASPART 100 UNITS/ML 10ML VIAL ONE (06:23)
[2016-09-10] MEDS ORDERED: PT OWN MED DRAWER 7, Y5N ONE ×3 (06:24→20:55)
[2016-09-10 08:45] LABS: INR 1.18 (0.82-1.09)
[2016-09-10 09:23] LABS: FERRITIN 235.282 ng/ml (6.9-282.5); THYROID STIMULATING HORMONE 1.78 uIU/ml (0.358-3.74)
[2016-09-10] MEDS: amLODIPine BESYLATE 5 MG TABLET (FP) PO SCH (09:51)
[2016-09-10] MEDS: LISINOPRIL 20 MG TABLET (FP) PO SCH (09:51)
[2016-09-10] MEDS: ENOXAPARIN NA (PORCINE) 120 MG/0.8 ML DISP.SYRIN SQ SCH ×2 (09:52→22:04)
[2016-09-10] MEDS: ANASTROZOLE 1 MG TABLET PO SCH (09:53)
--- NOTE | 2016-09-10 12:18 | PN ---
Progress Note (short form) - Note Progress Note: Patient is better, has no further lower extremity pain. Temperature 97.8 F 09/10/16 07:35 Pulse Rate 88 09/10/16 09:30 Respiratory Rate 18 09/10/16 09:30 Blood Pressure 120/50 09/10/16 09:30 O2 Sat by Pulse Oximetry (%) 97 09/10/16 09:00 GENERAL: The patient is awake, alert, and fully oriented, in no acute distress. HEAD: Normal with no signs of trauma. EYES: PERRL, extraocular movements intact, sclera anicteric, conjunctiva clear. ENT: moist mucous membranes. NECK: Trachea midline, full range of motion, supple. LUNGS: Breath sounds equal, clear to auscultation bilaterally, no wheezes, no crackles, no accessory muscle use. HEART: Regular rate and rhythm, S1, S2 ABDOMEN: Soft, nontender, nondistended, normoactive bowel sounds Lower EXTREMITIES: 2+ pulses b/l, Bl lower extremity tenderness improved and improved swelling. NEUROLOGICAL: Cranial nerves II through XII grossly intact. Normal speech. PSYCH: Normal mood, normal affect. SKIN: Warm, dry, moist mucus membrane CBCD WBC 3.5 K/mm3 (4.0-10.0) L 09/09/16 07:30 RBC 3.78 M/mm3 (3.60-5.2) 09/09/16 07:30 Hgb 10.9 GM/dL (10.7-15.3) 09/09/16 07:30 Hct 32.9 % (32.4-45.2) 09/09/16 07:30 MCV 87.1 fl (80-96) 09/09/16 07:30 MCHC 33.1 g/dl (32.0-36.0) 09/09/16 07:30 RDW 14.8 % (11.6-15.6) 09/09/16 07:30 Plt Count 226 K/MM3 (134-434) 09/09/16 07:30 MPV 8.0 fl (7.5-11.1) 09/09/16 07:30 CMP Sodium 142 mmol/L (136-145) 09/07/16 06:15 Potassium 4.3 mmol/L (3.5-5.1) 09/07/16 06:15 Chloride 106 mmol/L (98-107) 09/07/16 06:15 Carbon Dioxide 27 mmol/L (21-32) 09/07/16 06:15 Anion Gap 9 (8-16) 09/07/16 06:15 BUN 16 mg/dL (7-18) D 09/07/16 06:15 Creatinine 0.8 mg/dL (0.55-1.02) 09/07/16 06:15 Creat Clearance w eGFR > 60 (>60) 09/06/16 15:05 Random Glucose 137 mg/dL (74-106) H D 09/07/16 06:15 Calcium 8.5 mg/dL (8.5-10.1) 09/07/16 06:15 Total Bilirubin 0.3 mg/dL (0.2-1.0) 09/06/16 15:05 AST 16 U/L (15-37) 09/06/16 15:05 ALT 13 U/L (12-78) 09/06/16 15:05 Alkaline Phosphatase 41 U/L (45-117) L 09/06/16 15:05 Total Protein 7.5 g/dl (6.4-8.2) 09/06/16 15:05 Albumin 3.6 g/dl (3.4-5.0) 09/06/16 15:05 Current Medications Generic Name Dose Route Start Last Admin Trade Name Freq PRN Reason Stop Dose Admin Acetaminophen 650 mg 09/07/16 18:36 09/07/16 22:19 Tylenol - PO 650 mg Q6H PRN Administration FEVER OR PAIN Amlodipine Besylate 5 mg 09/07/16 10:00 09/10/16 09:51 Norvasc - PO 5 mg DAILY CHERYLE Administration Anastrozole 1 mg 09/08/16 10:00 09/10/16 09:53 Arimidex - PO 1 mg DAILY CHERYLE Administration Enoxaparin Sodium 120 mg 09/07/16 10:00 09/10/16 09:52 Lovenox - SQ 120 mg BID CHERYLE Administration Insulin Aspart 1 vial 09/06/16 22:00 09/10/16 11:49 Novolog Vial Sliding Scale - SQ Not Given [facility] Protocol Lisinopril 40 mg 09/07/16 10:00 09/10/16 09:51 Prinivil PO 40 mg DAILY CHERYLE Administration Warfarin Sodium 10 mg 09/10/16 18:00 Coumadin - PO 09/10/16 18:01 ONCE@1800 ONE Home Medications Medication Instructions Recorded Amlodipine Besylate [Norvasc -] 5 mg PO DAILY 09/06/16 Benazepril HCl 40 mg PO DAILY 09/06/16 Iron 28 mg PO DAILY 09/06/16 Metformin HCl [Glucophage] 1,000 mg PO BID 09/06/16 Tamoxifen Citrate 20 mg PO DAILY 09/06/16 LE: Decreased swelling of RLE ASSESSMENT AND PLAN: This is a 65 year old female with significant PMHx of early stage Breast CA s/p lumpectomy on Tamoxifen x 1 yr, no chemo or rads, DM, HTN who presents to ED from PCPs office after US confirmed right lower extremity DVT. Symptoms started 5 weeks ago, before her long car drive. Last dexa scan 1 yr ago WNL # Acute Right Popliteal DVT improving due to provoked Tamoxifen use and Long drive from [place] ; on Lovenox 120mg BID, hold tamoxifen since it is thrombogenic ,will start the patient on Arimidex 1mg daily instead, also will give her coumadin 10mg today. Repeat Pt/INR in am is on the case. #T2DM BGM ACHS with Sliding scale # HTN stable on Norvasc, Benazepril continue DVT treatment: full dose Lovenox Visit type - Emergency Visit Emergency Visit: Yes ED Registration Date: 09/07/16 Care time: The patient presented to the Emergency Department on the above date and was hospitalized for further evaluation of their emergent condition. - New Patient This patient is new to me today: No - Critical Care Critical Care patient: No
[2016-09-10] MEDS ORDERED: WARFARIN NA 10 MG TABLET (FP) PO ONE (18:00)
[2016-09-11 06:06] LABS: SERUM IRON 59 ug/dL (27-139); TOTAL IRON BINDING CAPACITY 256 ug/dL (250-450); UIBC 197 ug/dL (118-369)
[2016-09-11 06:57] LABS: MCH 28.3 pg (25.7-33.7); MCHC 32.4 g/dl (32.0-36.0); MEAN CELL VOLUME 87.3 fl (80-96); PLATELET COUNT 209 K/MM3 (134-434); RDW 14.8 % (11.6-15.6); WHITE BLOOD COUNT 3.8 K/mm3 (4.0-10.0)
[2016-09-11] MEDS: INSULIN SLIDING SCALE (NOVOLOG) 1 VIAL SQ SCH ×2 (07:13→11:58)
[2016-09-11 07:26] LABS: INR 1.19 (0.82-1.09); PROTHROMBIN TIME (PATIENT) 13.1 SEC (9.98-11.88)
[2016-09-11] MEDS: ENOXAPARIN NA (PORCINE) 120 MG/0.8 ML DISP.SYRIN SQ SCH (10:16)
[2016-09-11] MEDS: amLODIPine BESYLATE 5 MG TABLET (FP) PO SCH (10:17)
[2016-09-11] MEDS: LISINOPRIL 20 MG TABLET (FP) PO SCH (10:17)
[2016-09-11] MEDS: ANASTROZOLE 1 MG TABLET PO SCH (11:31)
[2016-09-11] MEDS ORDERED: INSULIN (NOVOLOG) ASPART 100 UNITS/ML 10ML VIAL ONE (15:24)
[2016-09-11 15:43] VITALS: BP 117/69; PULSE 67; TEMP 98.2
--- NOTE | 2016-09-11 15:48 | DS ---
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 No acute events. afebrile and hemodynamically stable. states her LE pain is resolved. denies sob, palpitations, hemoptysis, cough or chest pain OBJECTIVE: Vital Signs Period Temp Pulse Resp BP Sys/Stephen Pulse Ox Last 24 Hr 97.7 F-98.9 F 18-71 18-20 117-128/66-84 97 PHYSICAL EXAM GENERAL: The patient is awake, alert, and fully oriented, in no acute distress. HEAD: Normal with no signs of trauma. EYES: PERRL, extraocular movements intact, sclera anicteric, conjunctiva clear. No ptosis. ENT: moist mucous membranes. NECK: Trachea midline, full range of motion, supple. LUNGS: Breath sounds equal, clear to auscultation bilaterally, no wheezes, no crackles, no accessory muscle use. HEART: Regular rate and rhythm, S1, S2 ABDOMEN: Soft, nontender, nondistended, normoactive bowel sounds Lower EXTREMITIES: 2+ pulses b/l, edema resolved, legs even sixe, no tenderness behind knee NEUROLOGICAL: Cranial nerves II through XII grossly intact. Normal speech, gait not observed. PSYCH: Normal mood, normal affect. SKIN: Warm, dry LABS Laboratory Results - last 24 hr 09/10/16 09/10/16 09/10/16 07:30 17:34 22:06 WBC RBC Hgb Hct MCV MCHC RDW Plt Count MPV INR POC Glucometer 128 181 Iron 59 TIBC 256 Iron Saturation 23 09/11/16 09/11/16 09/11/16 06:15 06:15 07:08 WBC 3.8 L RBC 3.52 L Hgb 10.0 L Hct 30.8 L MCV 87.3 MCHC 32.4 RDW 14.8 Plt Count 209 MPV 8.0 INR 1.19 H POC Glucometer 152 Iron TIBC Iron Saturation 09/11/16 11:05 WBC RBC Hgb Hct MCV MCHC RDW Plt Count MPV INR POC Glucometer 173 Iron TIBC Iron Saturation HOSPITAL COURSE: Date of Admission:09/07/16 This is a 65 year old female with significant PMH of DCIS Breast CA s/p lumpectomy, on Tamoxifen x 1 yr, no chemo or rads, DM, HTN who presents to ED from PCPs office after US confirmed right lower extremity DVT. Symptoms started 5 weeks ago, she then tool along car drive from [place]. Last dexa 1 yr ago WNL. Her [place] oncologist was Dr Jaxon Bill. Patient was admitted, her tamoxinex was switched to arimidex. She was dischaged on IM lovenox 12 bid x 3 mo total and asked to get a DEXA scan and to take Ca and Vit D supplements. She will follow with Dr Su for a/c and CA management. Date of Discharge: 09/11/16 Minutes to complete discharge: 65 (na) <Ashely Chin - Last Filed: 09/11/16 15:53> Physical Exam: SUBJECTIVE: Patient seen and examined OBJECTIVE: PHYSICAL EXAM GENERAL: The patient is awake, alert, and fully oriented, in no acute distress. HEAD: Normal with no signs of trauma. EYES: PERRL, extraocular movements intact, sclera anicteric, conjunctiva clear. ENT: Ears normal, nares patent, oropharynx clear without exudates, moist mucous membranes. NECK: Trachea midline, full range of motion, supple. LUNGS: Breath sounds equal, clear to auscultation bilaterally, no wheezes, no crackles, no accessory muscle use. HEART: Regular rate and rhythm, S1, S2 without murmur, rub or gallop. ABDOMEN: Soft, nontender, nondistended, normoactive bowel sounds, no guarding, no rebound, no hepatosplenomegaly, no masses. EXTREMITIES: 2+ pulses, warm, well-perfused, no edema. NEUROLOGICAL: Cranial nerves II through XII grossly intact. Normal speech, gait not observed. PSYCH: Normal mood, normal affect. SKIN: Warm, dry, normal turgor, no rashes or lesions noted. LABS HOSPITAL COURSE: Date of Admission:09/07/16 Date of Discharge: 09/18/16 discharged with Subcutaneous Lovenox 120mg sq.bid and will follow up with <Jesus Garcia - Last Filed: 09/18/16 04:50> Discharge Summary Reason For Visit: DVT Current Active Problems DVT (deep venous thrombosis) (Acute) Diabetes mellitus (Acute) History of breast cancer in female (Acute) Hypertension (Acute) - Home Medications Comprehensive Discharge Medication List: Ambulatory Orders Amlodipine Besylate [Norvasc -] 5 mg PO DAILY 09/06/16 Benazepril HCl 40 mg PO DAILY 09/06/16 Iron 28 mg PO DAILY 09/06/16 Metformin HCl [Glucophage] 1,000 mg PO BID 09/06/16 Anastrozole [Arimidex -] 1 mg PO DAILY #30 tablet 09/11/16 Calcium (Oyster Shell) [Os-Olman 500MG -] 500 mg NR BID #60 tablet 09/11/16 Cholecalciferol (Vitamin D3) [Vitamin D3 -] 400 unit PO DAILY #30 tablet Enoxaparin Sodium [Lovenox] 120 mg SQ BID #60 ml 09/11/16 <Ashely Chin - Last Filed: 09/11/16 15:53> Current Active Problems DVT (deep venous thrombosis) (Acute) Diabetes mellitus (Acute) History of breast cancer in female (Acute) Hypertension (Acute) - Home Medications Comprehensive Discharge Medication List: Ambulatory Orders Amlodipine Besylate [Norvasc -] 5 mg PO DAILY 09/06/16 Benazepril HCl 40 mg PO DAILY 09/06/16 Iron 28 mg PO DAILY 09/06/16 Metformin HCl [Glucophage] 1,000 mg PO BID 09/06/16 Anastrozole [Arimidex -] 1 mg PO DAILY #30 tablet 09/11/16 Calcium (Oyster Shell) [Os-Olman 500MG -] 500 mg NR BID #60 tablet 09/11/16 Cholecalciferol (Vitamin D3) [Vitamin D3 -] 400 unit PO DAILY #30 tablet Enoxaparin Sodium [Lovenox] 120 mg SQ BID #60 ml 09/11/16 <Jesus Garcia - Last Filed: 09/18/16 04:50> Condition: Good - Instructions Diet, Activity, Other Instructions: You were in the hospital for deep vein thrombosis in your right leg. This is a potentially dangerous condition because it can lead to blood clots in the lungs , that can be fatal. This may have been provoked by Tamoxifen (it is a side effect). We switched you to Arimidex, which is a similar medication but with less clot promoting side effects. It can however lead to low bone density so you will need to follow up with primary care and do a bone density scan. You will also need to take vitamin D and Calcium supplements. You will need to inject blood thinner Lovenox twice a day for 3 months to prevent clot formation , your daughter, who is a nurse can help you with the injection. Please follow up with Dr Su in 1 week. Lovenox will make you at risk for bleeding for prolonged period of time, so while you are on it avoid activities that may cause you to fall or hit your head as this can cause life threatening bleed. Return to hospital if symptoms resume Referrals: Keri Hollingsworth MD [Primary Care Provider] - 1 Week Louie Su MD [Staff Physician] - 1 Week Disposition: HOME Problem List - Problems (1) DVT (deep venous thrombosis) Code(s): I82.409 - ACUTE EMBOLISM AND THOMBOS UNSP DEEP VN UNSP LOWER EXTREMITY Qualifiers: DVT location: lower extremity Affected thrombotic vein of extremity: popliteal Laterality: right Chronicity: acute Qualified Code(s): I82.431 - Acute embolism and thrombosis of right popliteal vein (2) Diabetes mellitus Code(s): E11.9 - TYPE 2 DIABETES MELLITUS WITHOUT COMPLICATIONS Qualifiers: Diabetes mellitus type: type 2 Diabetes mellitus complication status: without complication Diabetes mellitus usp insulin use: without continuous churn buttermaker use Qualified Code(s): E11.9 - Type 2 diabetes mellitus without complications (3) Hypertension Code(s): I10 - ESSENTIAL (PRIMARY) HYPERTENSION Qualifiers: Hypertension type: essential hypertension Qualified Code(s): I10 - Essential (primary) hypertension (4) History of breast cancer in female Code(s): Z85.3 - PERSONAL HISTORY OF MALIGNANT NEOPLASM OF BREAST <Ashely Chin - Last Filed: 09/11/16 15:53> This patient is new to me today: No Emergency Visit: Yes ED Registration Date: 09/07/16 Care time: The patient presented to the Emergency Department on the above date and was hospitalized for further evaluation of their emergent condition. Critical Care patient: No - Discharge Referral Referred to [facility] No <Ashely Chin - Last Filed: 09/11/16 15:53>
--- NOTE | 2016-09-11 17:15 | PN ---
Teaching Attending Note Name of Resident: Ashely Chin ATTENDING PHYSICIAN STATEMENT I saw and evaluated the patient. I reviewed the resident's note and discussed the case with the resident. I agree with the resident's findings and plan as documented. Vital Signs Temperature 98.2 F 09/11/16 15:40 Pulse Rate 67 09/11/16 15:40 Respiratory Rate 18 09/11/16 15:40 Blood Pressure 117/69 09/11/16 15:40 O2 Sat by Pulse Oximetry (%) 97 09/10/16 21:00 CBCD WBC 3.8 K/mm3 (4.0-10.0) L 09/11/16 06:15 RBC 3.52 M/mm3 (3.60-5.2) L 09/11/16 06:15 Hgb 10.0 GM/dL (10.7-15.3) L 09/11/16 06:15 Hct 30.8 % (32.4-45.2) L 09/11/16 06:15 MCV 87.3 fl (80-96) 09/11/16 06:15 MCHC 32.4 g/dl (32.0-36.0) 09/11/16 06:15 RDW 14.8 % (11.6-15.6) 09/11/16 06:15 Plt Count 209 K/MM3 (134-434) 09/11/16 06:15 MPV 8.0 fl (7.5-11.1) 09/11/16 06:15 CMP Sodium 142 mmol/L (136-145) 09/07/16 06:15 Potassium 4.3 mmol/L (3.5-5.1) 09/07/16 06:15 Chloride 106 mmol/L (98-107) 09/07/16 06:15 Carbon Dioxide 27 mmol/L (21-32) 09/07/16 06:15 Anion Gap 9 (8-16) 09/07/16 06:15 BUN 16 mg/dL (7-18) D 09/07/16 06:15 Creatinine 0.8 mg/dL (0.55-1.02) 09/07/16 06:15 Creat Clearance w eGFR > 60 (>60) 09/06/16 15:05 Random Glucose 137 mg/dL (74-106) H D 09/07/16 06:15 Calcium 8.5 mg/dL (8.5-10.1) 09/07/16 06:15 Total Bilirubin 0.3 mg/dL (0.2-1.0) 09/06/16 15:05 AST 16 U/L (15-37) 09/06/16 15:05 ALT 13 U/L (12-78) 09/06/16 15:05 Alkaline Phosphatase 41 U/L (45-117) L 09/06/16 15:05 Total Protein 7.5 g/dl (6.4-8.2) 09/06/16 15:05 Albumin 3.6 g/dl (3.4-5.0) 09/06/16 15:05 Current Medications Generic Name Dose Route Start Last Admin Trade Name Freq PRN Reason Stop Dose Admin Acetaminophen 650 mg 09/07/16 18:36 09/07/16 22:19 Tylenol - PO 650 mg Q6H PRN Administration FEVER OR PAIN Amlodipine Besylate 5 mg 09/07/16 10:00 09/11/16 10:17 Norvasc - PO 5 mg DAILY CHERYLE Administration Anastrozole 1 mg 09/08/16 10:00 09/11/16 11:31 Arimidex - PO 1 mg DAILY CHERYLE Administration Enoxaparin Sodium 120 mg 09/07/16 10:00 09/11/16 10:16 Lovenox - SQ 120 mg BID CHERYLE Administration Insulin Aspart 1 vial 09/06/16 22:00 09/11/16 11:58 Novolog Vial Sliding Scale - SQ 2 units ACHS CHERYLE Administration Protocol Lisinopril 40 mg 09/07/16 10:00 09/11/16 10:17 Prinivil PO 40 mg DAILY CHERYLE Administration Home Medications Medication Instructions Recorded Amlodipine Besylate [Norvasc -] 5 mg PO DAILY 09/06/16 Benazepril HCl 40 mg PO DAILY 09/06/16 Iron 28 mg PO DAILY 09/06/16 Metformin HCl [Glucophage] 1,000 mg PO BID 09/06/16 Anastrozole [Arimidex -] 1 mg PO DAILY #30 tablet 09/11/16 Calcium (Oyster Shell) [Os-Olman 500 mg NR BID #60 tablet 09/11/16 500MG -] Cholecalciferol (Vitamin D3) 400 unit PO DAILY #30 tablet 09/11/16 [Vitamin D3 -] Enoxaparin Sodium [Lovenox] 120 mg SQ BID #60 ml 09/11/16 LE: Decreased swelling of RLE ASSESSMENT AND PLAN: This is a 65 year old female with significant PMHx of early stage Breast CA s/p lumpectomy on Tamoxifen x 1 yr, no chemo or rads, DM, HTN who presents to ED from PCPs office after US confirmed right lower extremity DVT. Symptoms started 5 weeks ago, before her long car drive. Last dexa scan 1 yr ago WNL # Acute Right Popliteal DVT improving due to provoked Tamoxifen use and Long drive from [place] ; on Lovenox 120mg BID, hold tamoxifen since it is thrombogenic ,will start the patient on Arimidex 1mg daily instead, also will give her coumadin 10mg today. Repeat Pt/INR in am is on the case. #T2DM BGM ACHS with Sliding scale # HTN stable on Norvasc, Benazepril continue DVT treatment: full dose Lovenox
[2016-09-12 00:06] LABS: A/G RATIO 1.1 (0.7-1.7); ALBUMIN 3.6 g/dL (2.9-4.4); GLOBULIN, TOTAL 3.4 g/dL (2.2-3.9); M-SPIKE Not Observed g/dL (Not Observed)
[2016-09-12 08:07] LABS: IGG IMMUNOGLOBULIN 1561 mg/dL (700-1600); IGM IMMUNOGLOBULIN 80 mg/dL (26-217)
[2016-09-12 14:13] LABS: Hgb A2 2.3 % (0.7-3.1)
[2016-09-13 00:07] LABS: A/G RATIO 1.1 (0.7-1.7); ALBUMIN 3.1 g/dL (2.9-4.4); ALPHA-1-GLOBULIN 0.3 g/dL (0.0-0.4); BETA GLOBULIN 0.9 g/dL (0.7-1.3); GAMMA GLOBULIN 1.3 g/dL (0.4-1.8); M-SPIKE Not Observed g/dL (Not Observed); TOTAL PROTEIN 6.1 g/dL (6.0-8.5)
== END 2016-09-11 17:36 | disposition home or self-care (01) | DRG 300 ==
LOC: JER 13:58 → JERBED 17:34 → J5S 21:19 → OBSVTOIN 09-07 12:50
PROVIDERS: ADMIT Internal Medicine; ATTEND Internal Medicine
PROC: 3E033GC Introduction of Other Therapeutic Substance into Peripheral Vein, Percutaneous Approach (ICD-10-PCS; principal; 2016-09-06)
DX: I82.431 Acute embolism and thrombosis of right popliteal vein (principal); Z68.42 Body mass index [BMI] 45.0-49.9, adult; T38.6X5A Adverse effect of antigonadotrophins, antiestrogens, antiandrogens, not elsewhere classified, initial encounter; E11.9 Type 2 diabetes mellitus without complications; I10 Essential (primary) hypertension; Z79.84 Long term (current) use of oral hypoglycemic drugs; Z85.3 Personal history of malignant neoplasm of breast; D72.819 Decreased white blood cell count, unspecified; E66.01 Morbid (severe) obesity due to excess calories; Z71.3 Dietary counseling and surveillance
CPT/HCPCS: 36415; 71020-TC; 80048; 80053; 82607; 82728; 82746; 82784; 83021; 83540; 83550; 83615; 84155; 84165; 84443; 85025; 85027; 85044; 85610; 85660; 85730; 86334; 93005; 93010; 93970-TC; 99283-25; G0378

== ENCOUNTER → 2016-10-26 | Emergency (ER) | payer OTHER ==
[~2016-10-26] MED LIST: SODIUM CHLORIDE 500 ML IV STA
[2016-10-26 15:46] VITALS: BMI 44.6
--- NOTE | 2016-10-26 16:30 | PDOC ---
History of Present Illness - General History Source: Patient Exam Limitations: No Limitations <Kayleen Campos - Last Filed: 10/26/16 18:27> <Panfilo Mendez - Last Filed: 10/26/16 22:36> - General Chief Complaint: Syncope/Near Syncope Stated Complaint: WEAKNESS, DIZZINESS Time Seen by Provider: 10/26/16 16:29 - History of Present Illness Initial Comments: 10/26/16 17:27 The patient is a 65 year old female, with a significant past medical history of breast CA (s/p mastectomy), DM, DVT (on Lovenox) and HTN who presents to the emergency department with daughter complaining of syncopal episode yesterday. Patient reports lightheadedness yesterday and today that is exacerbated by getting up. Patient states that she was in the park yesterday as she got up from the bench she blacked out and sat back down on the bench. She denies any fall, trauma or LOC. She is unsure how long she blacked out for. She denies any change in her PO intake. She also reports right lower back pain and chills. She denies any nausea, vomiting, diarrhea, chest pain or SOB. Allergies: NKA Past surgical history: Hysterectomy. Social history: Nonsmoker. Denies EtOH use and drug use. Primary Care Physician: (Kayleen Campos) Past History <Kayleen Campos - Last Filed: 10/26/16 18:27> - Past Medical History Cancer: Yes (Rt Breast) Diabetes: Yes HTN: Yes - Psycho/Social/Smoking Cessation Hx Suicidal Ideation: No Smoking History: Never smoked Hx Alcohol Use: No Drug/Substance Use Hx: No Substance Use Type: None <Panfilo Mendez - Last Filed: 10/26/16 22:36> - Past Medical History Allergies/Adverse Reactions: Allergies Allergy/AdvReac Type Severity Reaction Status Date / Time No Known Allergies Allergy Verified 10/26/16 15:42 Home Medications: Ambulatory Orders Amlodipine Besylate [Norvasc -] 5 mg PO DAILY 09/06/16 Benazepril HCl 40 mg PO DAILY 09/06/16 Iron 28 mg PO DAILY 09/06/16 Metformin HCl [Glucophage] 1,000 mg PO BID 09/06/16 Anastrozole [Arimidex -] 1 mg PO DAILY #30 tablet 09/11/16 Calcium (Oyster Shell) [Os-Olman 500MG -] 500 mg NR BID #60 tablet 09/11/16 Cholecalciferol (Vitamin D3) [Vitamin D3 -] 400 unit PO DAILY #30 tablet Enoxaparin Sodium [Lovenox] 120 mg SQ BID #60 ml 09/11/16 Review of Systems - Review of Systems Able to Perform ROS?: Yes <Kayleen Campos - Last Filed: 10/26/16 18:27> <Panfilo Mendez - Last Filed: 10/26/16 22:36> - Review of Systems Comments:: 10/26/16 17:30 CONSTITUTIONAL: (+)chills. No fever, no fatigue EYES: No visual changes ENT: No ear pain, no sore throat CARDIOVASCULAR: (+)syncopal episode, (+)lightheadedness.No chest pain, no palpitations RESPIRATORY: No cough, no SOB GI: No abdominal pain, no nausea, no vomiting, no constipation, no diarrhea GENITOURINARY: No dysuria, no frequency, no hematuria MUSCULOSKELETAL: (+)right lower back pain. No joint pain, no myalgias SKIN: No rash NEURO: No headache (Kayleen Campos) *Physical Exam <Kayleen Campos - Last Filed: 10/26/16 18:27> <Panfilo Mendez - Last Filed: 10/26/16 22:36> - Vital Signs Last Vital Signs Temp Pulse Resp BP Pulse Ox 97.6 F 71 22 127/67 98 10/26/16 15:42 10/26/16 15:42 10/26/16 15:42 10/26/16 15:42 10/26/16 19:24 - Physical Exam Comments: 10/26/16 17:30 CONSTITUTIONAL: Well-appearing; well-nourished; in no apparent distress HEAD: Normocephalic; atraumatic EYES: PERRL; EOM intact ENMT: External appears normal; normal oropharynx NECK: Supple; non-tender; no cervical lymphadenopathy CARD: Normal S1, S2; no murmurs, rubs, or gallops RESP: Normal chest excursion with respiration; breath sounds clear and equal bilaterally; no wheezes, rhonchi, or rales ABD: (+)Proximal right abdominal wall hematoma. Soft, non-distended; non-tender ; no palpable organomegaly, no palpable hernias EXT: Normal ROM in all four extremities; non-tender to palpation; distal pulses intact SKIN: Warm, dry, no rash NEURO: (+) T11-12 and L1 tenderness. No focal neurological deficiencies. (Kayleen Campos) Heart Score/ECG Review <Kayleen Campos - Last Filed: 10/26/16 18:27> <Panfilo Mendez - Last Filed: 10/26/16 22:36> #1 10/26/16 17:37 NS 77 bpm (Kayleen Campos) ED Treatment Course - LABORATORY CBC & Chemistry Diagram: 10/26/16 17:00 10/26/16 17:00 <Kayleen Campos - Last Filed: 10/26/16 18:27> - LABORATORY CBC & Chemistry Diagram: 10/26/16 17:00 10/26/16 17:00 <Panfilo Mendez - Last Filed: 10/26/16 22:36> - ADDITIONAL ORDERS Additional order review: Laboratory Results 10/26/16 10/26/16 10/26/16 18:45 17:00 17:00 INR 1.13 Sodium 140 Potassium 4.6 Chloride 104 Carbon Dioxide 24 Anion Gap 12 BUN 20 H D Creatinine 1.1 H D Creat Clearance w eGFR 49.54 Random Glucose 99 D Calcium 9.4 Total Bilirubin 0.2 D AST 12 L D ALT 16 D Alkaline Phosphatase 45 Creatine Kinase 110 Troponin I < 0.02 Total Protein 7.2 Albumin 3.4 Urine Color Colorless Urine Appearance Clear Urine pH 6.0 Urine Protein Negative Urine Glucose (UA) Negative Urine Ketones Negative Urine Blood Negative Urine Nitrite Negative Urine Bilirubin Negative Urine Urobilinogen Negative Ur Leukocyte Esterase Negative 10/26/16 17:00 RBC 3.47 L MCV 87.3 MCHC 32.8 RDW 16.4 H D MPV 9.2 D Neutrophils % 47.9 Lymphocytes % 43.0 H Monocytes % 7.2 Eosinophils % 1.3 Basophils % 0.6 - RADIOLOGY Radiology Studies Ordered: Category Date Time Status CHEST - PA [RAD] Stat Radiology 10/26/16 17:19 Taken SPINE-LUMBAR ONLY [RAD] Stat Radiology 10/26/16 17:19 Taken - Medications Given in the ED: ED Medications Discontinued Medications Generic Name Dose Route Start Last Admin Trade Name Rosalinda PRN Reason Stop Dose Admin Sodium Chloride 500 mls @ 500 mls/hr 10/26/16 17:22 10/26/16 18:07 Normal Saline - IV 10/26/16 18:21 500 mls/hr ASDIR STA Administration Sodium Chloride 500 mls @ 500 mls/hr 10/26/16 19:05 10/26/16 19:08 Normal Saline - IV 10/26/16 20:04 500 mls/hr ASDIR STA Administration Medical Decision Making <Kayleen Campos - Last Filed: 10/26/16 18:27> <Panfilo Mendez - Last Filed: 10/26/16 22:36> - Medical Decision Making 10/26/16 22:33 Patient is a well-appearing 65-year-old female with history of hypertension, diabetes, history of breast CA presents to the ER with several near syncopal episode and a syncopal episode 24 hours prior to arrival, related primarily to the changes in position and to standing from a seated position. In the ER, patient is awake and alert, asymptomatic, without evidence of clinical orthostasis or abnormal orthostatic vital signs. EKG is within normal limit, without evidence of an arrhythmia or ischemia. CBC is within normal limit. CMP reveals mildly elevated BUN to creatinine ratio. Urinalysis is normal. Chest x- ray reveals no evidence of cardiomegaly, there is no infiltrate or effusion. L spine x-rays reveal no evidence of metastatic lesions. I do not suspect ACS or PE at this time. Patient is safe for discharge and outpatient follow-up with cardiology for further evaluation and treatment. I discussed the case with Dr. Llanes of cardiology who agrees with the plan of care. Will discharge. ( Panfilo Mendez) *DC/Admit/Observation/Transfer <Kayleen Campos - Last Filed: 10/26/16 18:27> <Panfilo Mendez - Last Filed: 10/26/16 22:36> Diagnosis at time of Disposition: Pre-syncope Syncope Qualifiers: Syncope type: unspecified Qualified Code(s): R55 - Syncope and collapse - Discharge Dispostion Disposition: HOME Condition at time of disposition: Stable - Referrals Referrals: Keri Hollingsworth MD [Primary Care Provider] - Agustin Llanes MD [Staff Physician] - - Patient Instructions Printed Discharge Instructions: DI for Syncope in Adults (Fainting) - Attestations Scribe Attestion: 10/26/16 17:30 Documentation prepared by MAREN Fournier, acting as certified medical aide for Panfilo Mendez MD. (Kayleen Campos) Physician Attestion: 10/26/16 22:32 The documentation was prepared by the scribe under my direct supervision. I have reviewed the documentation which correctly represents the findings, medical decision-making and critical action taken by me. (Panfilo Mendez)
[2016-10-26 17:44] LABS: BASOPHIL 0.6 % (0-2.0); EOSINOPHIL 1.3 % (0-4.5); MCH 28.6 pg (25.7-33.7); MCHC 32.8 g/dl (32.0-36.0); MEAN CELL VOLUME 87.3 fl (80-96); MEAN PLT VOLUME 9.2 fl (7.5-11.1); NEUTROPHILS 47.9 % (42.8-82.8); PLATELET COUNT 246 K/MM3 (134-434); RDW 16.4 % (11.6-15.6); WHITE BLOOD COUNT 4.5 K/mm3 (4.0-10.0)
[2016-10-26 18:09] LABS: ALBUMIN 3.4 g/dl (3.4-5.0); ALK PHOS 45 U/L (45-117); ANION GAP 12 (8-16); BILIRUBIN,TOTAL 0.2 mg/dL (0.2-1.0); CALCIUM 9.4 mg/dL (8.5-10.1); CO2 24 mmol/L (21-32); CREATININE 1.1 mg/dL (0.55-1.02); GLUCOSE,RANDOM 99 mg/dL (74-106); SGOT/AST 12 U/L (15-37); SGPT/ALT 16 U/L (12-78); TOT PROT 7.2 g/dl (6.4-8.2)
[2016-10-26 18:11] LABS: TROPONIN I < 0.02 ng/ml (0.00-0.05)
[2016-10-26 18:27] LABS: INR 1.13 (0.82-1.09); PROTHROMBIN TIME (PATIENT) 12.5 SEC (9.98-11.88)
[2016-10-26 19:55] LABS: URINE APPEARANCE CLEAR; URINE BILIRUBIN NEGATIVE (NEGATIVE); URINE BLOOD NEGATIVE (NEGATIVE); URINE COLOR COLORLESS; URINE GLUCOSE (UA) NEGATIVE (NEGATIVE); URINE KETONE NEGATIVE (NEGATIVE); URINE LEUK ESTERASE NEGATIVE (NEGATIVE); URINE NITRITE NEGATIVE (NEGATIVE); URINE PROTEIN NEGATIVE (NEGATIVE); URINE UROBILINOGEN NEGATIVE E.U./dl (0.2-1.0)
[2016-10-26 22:53] VITALS: BP 111/63; PULSE 86; TEMP 98
--- NOTE | 2016-10-27 09:47 | EKG ---
Test Reason : Blood Pressure : / mmHG Vent. Rate : 077 BPM Atrial Rate : 077 BPM P-R Int : 174 ms QRS Dur : 082 ms QT Int : 396 ms P-R-T Axes : 056 053 055 degrees QTc Int : 448 ms NORMAL SINUS RHYTHM EARLY REPOLARIZATION NONSPECIFIC ST ABNORMALITY WHEN COMPARED WITH ECG OF 06-SEP-2016 15:24, NO SIGNIFICANT CHANGE WAS FOUND Confirmed by ROSELIA RIVERA MD ([id number]) on 10/27/2016 9:46:47 AM Referred By: Confirmed By:ROSELIA RIVERA MD
== END | disposition home or self-care (01) ==
LOC: JER 15:21
PROC: 3E0337Z Introduction of Electrolytic and Water Balance Substance into Peripheral Vein, Percutaneous Approach (ICD-10-PCS; principal; 2016-10-26)
DX: R55 Syncope and collapse (principal); I10 Essential (primary) hypertension; E11.9 Type 2 diabetes mellitus without complications; Z79.84 Long term (current) use of oral hypoglycemic drugs; Z85.3 Personal history of malignant neoplasm of breast; Z86.718 Personal history of other venous thrombosis and embolism; Z79.01 Long term (current) use of anticoagulants; Z90.11 Acquired absence of right breast and nipple
CPT/HCPCS: 36415; 71010-TC; 72100-TC; 80053; 81003; 82550; 84484; 85025; 85610; 87086; 93005; 93010; 96360; 96361; 99283-25

== ENCOUNTER 2017-01-25 14:24 | Emergency (ER) | payer OTHER ==
[2017-01-25 14:32] VITALS: BMI 44.9
--- NOTE | 2017-01-25 15:43 | PDOC ---
History of Present Illness <Cristina Chaidez - Last Filed: 01/25/17 21:00> - General History Source: Patient Exam Limitations: No Limitations - History of Present Illness Initial Comments: 01/25/17 16:24 My chief complaint: left knee pain, rt. shoulder pain History of Present Illness: Patient is a 66-year-old female with a history of right-sided breast cancer with status post lumpectomy, hypertension, non-insulin -dependent diabetes, and history of DVT right leg 08/2016. He is here today complaining of right shoulder pain with certain movements of her right shoulder wit decreased range of motion. Patient also complaining of left anterior and posterior knee pain since yesterday. Patient reports that she has noticed swelling of the suprapatellar area of her left knee. Patient also complaining of left proximal calf pain since yesterday. Patient denies any injury or fall. Patient denies being on any oral anticoagulants at this time. Patient is having slight difficulty ambulating due to pain and left knee. Pt denies any numbness of her left leg or left arm. Patient has not taken anything for pain. Patient also reports having had pain in her right knee recently.Pt's daughter with her report that she was taken off Lovenox 12/26/[address] Pretty Nelson. She also report that her mother has had pain in left calf for one month. Pt. has had no recent travel. 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 leg 08/2016 Past Surgical Hx: lumpectomy rt breast, hysterectomy 01/25/17 18:18 01/25/17 18:24 01/25/17 18:39 01/25/17 19:39 01/25/17 19:39 Timing/Duration: intermittent (rt. shoulder with movement, left anterior/ posterior knee) Severity: moderate Associated Symptoms: reports: other (left knee pain anterior/posteriorly , swelling left suprapatella knee rt. shoulder pain, left posterior proximal calf tenderness) <Layla Roberts - Last Filed: 01/27/17 13:24> - General Chief Complaint: Pain Stated Complaint: PAIN/ SHOULDERS, KNEES Time Seen by Provider: 01/25/17 15:42 Past History <Cristina Chaidez - Last Filed: 01/25/17 21:00> - Past Medical History Cancer: Yes (Rt Breast) Diabetes: Yes HTN: Yes - Psycho/Social/Smoking Cessation Hx Suicidal Ideation: No Smoking History: Never smoked Information on smoking cessation initiated: No Hx Alcohol Use: No Drug/Substance Use Hx: No Substance Use Type: None <Layla Roberts - Last Filed: 01/27/17 13:24> - Past Medical History Allergies/Adverse Reactions: Allergies Allergy/AdvReac Type Severity Reaction Status Date / Time No Known Allergies Allergy Verified 01/25/17 14:32 Home Medications: Ambulatory Orders Amlodipine Besylate [Norvasc -] 5 mg PO DAILY 09/06/16 Benazepril HCl 40 mg PO DAILY 09/06/16 Iron 28 mg PO DAILY 09/06/16 Metformin HCl [Glucophage] 1,000 mg PO BID 09/06/16 Anastrozole [Arimidex -] 1 mg PO DAILY #30 tablet 09/11/16 Calcium (Oyster Shell) [Os-Olman 500MG -] 500 mg NR BID #60 tablet 09/11/16 Cholecalciferol (Vitamin D3) [Vitamin D3 -] 400 unit PO DAILY #30 tablet Enoxaparin Sodium [Lovenox] 120 mg SQ BID #60 ml 09/11/16 Enoxaparin Sodium [Lovenox] 120 mg SQ BID #30 syringe 01/25/17 Sitagliptin Phosphate [Januvia -] 25 mg PO ONCE 01/25/17 Review of Systems - Review of Systems Able to Perform ROS?: Yes Constitutional: No: Symptoms Reported HEENTM: No: Symptoms Reported Respiratory: No: Symptoms reported Cardiac (ROS): No: Symptoms Reported ABD/GI: No: Symptoms Reported : No: Symptoms Reported Musculoskeletal: Yes: Joint Pain (rt. shoulder pain with certain movement, left anterior/posterior knee), Joint Swelling (left suprapatella ), Muscle Pain ( left posterior calf tenderness ) Integumentary: No: Symptoms Reported Neurological: No: Symptoms reported <Layla Roberts - Last Filed: 01/27/17 13:24> *Physical Exam - Vital Signs Last Vital Signs Temp Pulse Resp BP Pulse Ox 98 F 77 18 138/69 98 01/25/17 20:16 01/25/17 20:16 01/25/17 20:16 01/25/17 20:16 01/25/17 20:16 <Cristina Chaidez - Last Filed: 01/25/17 21:00> - Vital Signs Last Vital Signs Temp Pulse Resp BP Pulse Ox 98.2 F 72 17 134/95 100 01/25/17 14:31 01/25/17 14:31 01/25/17 14:31 01/25/17 14:31 01/25/17 14:31 - Physical Exam General Appearance: Yes: Appropriately Dressed Respiratory/Chest: positive: Lungs Clear, Normal Breath Sounds. negative: Chest Tender, Respiratory Distress Cardiovascular: positive: Regular Rhythm, Regular Rate, S1, S2 Vascular Pulses: Doralis-Pedis (L): 4+ Musculoskeletal: positive: Normal Inspection Extremity: positive: Normal Capillary Refill, Normal Inspection, Tender (rt. shoulder, left anterior/posterior knee,), Swelling (left suprapatella knee), Other (left posterior calf tenderness, negative Sierra left, ). negative: Normal Range of Motion (rt. shoulder) Integumentary: positive: Normal Color (b/l lower extremities) <Layla Roberts - Last Filed: 01/27/17 13:24> ED Treatment Course - Medications Given in the ED: ED Medications Discontinued Medications Generic Name Dose Route Start Last Admin Trade Name Rosalinda PRN Reason Stop Dose Admin Acetaminophen 1,000 mg 01/25/17 16:23 01/25/17 16:34 Tylenol - PO 01/25/17 16:24 1,000 mg ONCE ONE Administration Enoxaparin Sodium 100 mg 01/25/17 20:37 01/25/17 20:52 Lovenox - SQ 01/25/17 20:38 100 mg ONCE ONE Administration <Cristina Chaidez - Last Filed: 01/25/17 21:00> Medical Decision Making - Medical Decision Making 01/25/17 20:54 pt up triaged from fast track for positive DVT study. Patient has a history of RLE DVT, recently on Lovenox, lovenox stopped three weeks ago by PMD. Presents to the ED with LLE pain. + DVT in the LLE. Patient complains of L shoulder pain with movement of the left shoulder, but denies chest pain or shortness of breath. Will restart lovenox. Attempted to discuss the case with patient's PMD , Dr. Chavez, but no one is answering the phone in the office and the answering service is not set up. Patient has been injecting herself with lovenox and has lovenox at home. Will discharge with rx for lovenox and instructions to follow up with her PMD in the AM. <Cristina Chaidez - Last Filed: 01/25/17 21:00> - Medical Decision Making 01/25/17 16:31 Patient is a 66-year-old female with a history of right-sided breast cancer with status post lumpectomy, hypertension, [id number] diabetes, and history of DVT right leg 08/2016. He is here today complaining of right shoulder pain with certain movements of her right shoulder. Patient also complaining of left anterior and posterior knee pain since yesterday. Patient reports that she has noticed swelling of the suprapatellar area of her left knee. Patient also complaining of left proximal calf pain since yesterday. Patient denies any injury or fall. Patient denies being on any oral anticoagulants at this time. Patient is having slight difficulty ambulating duPt family with her report that she was taken off Lovenox 12/26/[address] Pretty Nelson. They also report that she was c/o pain left calf for one month. e to pain and left knee. Pt denies any numbness of her left leg or left arm. Patient has not taken anything for pain. Patient also reports having had pain in her right knee recently..Pt's daughter with her report that she was taken off Lovenox 12/26/[address] Pretty Nelson. She also report that her mother has had pain in left calf for one month. Rt. shoulder pain r/o omar abnormality Left knee pain with suprapatella edema left posterior calf r/o DVT PLAN: xray rt. shoulder Degenerative changes noted per Dr. Romero xray left knee Degenerative changes noted per Dr. Romero venous doppler US left leg thrombus in left popliteal vein, and thombus within the lesser saphenous vein p per Dr. Perez acetaminophen 1000 mg po 01/25/17 16:44 01/25/17 18:26 Dr. Hollingsworth called PCP she called back and was informed of pt.'s current thrombus in left popliteal vein, and thombus within the lesser saphenous vein per Dr. Chris Hollingsworth informed that pt. would be transferred to main ED and that she needed to speak Dr. Chaidez Pt. is being transferred to main ED for further evaluation Bubba charge nurse aware and Dr. Chaidez aware of pt.'s condition 01/25/17 18:39 01/25/17 19:40 <Layla Roberts - Last Filed: 01/27/17 13:24> *DC/Admit/Observation/Transfer <Cristina Chaidez - Last Filed: 01/25/17 21:00> <Layla Roberts - Last Filed: 01/27/17 13:24> Diagnosis at time of Disposition: Deep vein thrombosis (DVT) of left lower extremity Qualifiers: Affected thrombotic vein of extremity: popliteal Chronicity: acute Qualified Code(s): I82.432 - Acute embolism and thrombosis of left popliteal vein - Discharge Dispostion Disposition: HOME Condition at time of disposition: Good - Prescriptions Prescriptions: Enoxaparin Sodium [Lovenox] 120 mg SQ BID #30 syringe - Referrals Referrals: Keri Hollingsworth MD [Primary Care Provider] - - Patient Instructions Printed Discharge Instructions: Deep Vein Thrombosis Additional Instructions: return immediately to the ED for chest pain, shortness of breath, passing out. Return for worsening leg pain or swelling. You must take the lovenox, otherwise the blood clot could get bigger or could spread to the lung. Make sure that you call Dr. Hollingsworth for follow up in the morning.
[2017-01-25] MEDS ORDERED: ACETAMINOPHEN 500 MG TABLET (FP) PO ONE (16:23)
[2017-01-25] MEDS ORDERED: ACETAMINOPHEN 500 MG TABLET (FP) ONE (16:30)
[2017-01-25 20:17] VITALS: BP 138/69; PULSE 77; TEMP 98
[2017-01-25] MEDS ORDERED: ENOXAPARIN NA (PORCINE) 100 MG/1 ML DISP.SYRIN SQ ONE ×2 (20:37→20:47)
== END 2017-01-25 21:44 | disposition home or self-care (01) ==
LOC: JER 14:24
PROC: 3E023GC Introduction of Other Therapeutic Substance into Muscle, Percutaneous Approach (ICD-10-PCS; principal; 2017-01-25)
DX: I82.432 Acute embolism and thrombosis of left popliteal vein (principal)
CPT/HCPCS: 73030-TC-RT; 73562-TC-LT; 73562-TC-RT; 93971-TC; 99281-25

== ENCOUNTER 2017-01-30 12:19 | Emergency (ER) | payer OTHER ==
[2017-01-30 12:31] VITALS: TEMP 98.2; BMI 104.0
--- NOTE | 2017-01-30 15:54 | PDOC ---
History of Present Illness - General History Source: Patient Exam Limitations: No Limitations - History of Present Illness Initial Comments: 01/30/17 16:29 The patient is a 66 year old female, with significant past medical history of left leg popliteal DVT (01/25/17 on lovenox), breast cancer (s/p mastectomy), diabetes mellitus, HTN, HLD, who presents to the emergency room complaining of left leg pain and swelling. The pain is exacerbated on ambulation. The patient states that she was seen in the ED last week on 01/25/17 where they found a left leg DVT. She followed up with Dr. Hollingsworth today in the office and was told to revisit the ED because of her pain. She is not taking any pain medications. Denies chest pain, SOB. Denies fever, chills, nausea, vomiting. Allergies: none reported PCP: Dr. Keri Hollingsworth <Zhanna Houston - Last Filed: 01/30/17 19:02> <Martha Abbasi - Last Filed: 02/03/17 09:31> - General Chief Complaint: Edema Stated Complaint: REVISIT/ FOOT PAIN/DVT Time Seen by Provider: 01/30/17 15:38 Past History <Zhanna Houston - Last Filed: 01/30/17 19:02> - Past Medical History Cancer: Yes (Rt Breast) Diabetes: Yes HTN: Yes Other medical history: OBESITY,DVT LEFT LEG - Psycho/Social/Smoking Cessation Hx Suicidal Ideation: No Smoking History: Never smoked Information on smoking cessation initiated: No Hx Alcohol Use: No Drug/Substance Use Hx: No Substance Use Type: None <Martha Abbasi - Last Filed: 02/03/17 09:31> - Past Medical History Allergies/Adverse Reactions: Allergies Allergy/AdvReac Type Severity Reaction Status Date / Time No Known Allergies Allergy Verified 01/30/17 12:31 Home Medications: Ambulatory Orders Amlodipine Besylate [Norvasc -] 5 mg PO DAILY 09/06/16 Benazepril HCl 40 mg PO DAILY 09/06/16 Iron 28 mg PO DAILY 09/06/16 Metformin HCl [Glucophage] 1,000 mg PO BID 09/06/16 Anastrozole [Arimidex -] 1 mg PO DAILY #30 tablet 09/11/16 Cholecalciferol (Vitamin D3) [Vitamin D3 -] 400 unit PO DAILY #30 tablet Enoxaparin Sodium [Lovenox] 120 mg SQ BID #30 syringe 01/25/17 Sitagliptin Phosphate [Januvia -] 25 mg PO DAILY 01/25/17 Calcium (Oyster Shell) [Os-Olman 500MG -] 600 mg NR BID 01/30/17 Tramadol HCl 1 - 2 tab PO Q6H PRN #20 tablet MDD 8 tabs 01/30/17 Review of Systems - Review of Systems Able to Perform ROS?: Yes Comments:: 01/30/17 16:29 GENERAL/CONSTITUTIONAL: No fever or chills. No weakness. HEAD, EYES, EARS, NOSE AND THROAT: No change in vision. No ear pain or discharge. No sore throat. GASTROINTESTINAL: No nausea, vomiting, diarrhea or constipation. GENITOURINARY: No dysuria, frequency, or change in urination. CARDIOVASCULAR: No chest pain or shortness of breath. RESPIRATORY: No cough, wheezing, or hemoptysis. MUSCULOSKELETAL: +left lower extremity pain and swelling. No neck or back pain. SKIN: No rash NEUROLOGIC: No headache, vertigo, loss of consciousness, or change in strength/ sensation. ENDOCRINE: No increased thirst. No abnormal weight change. HEMATOLOGIC/LYMPHATIC: No anemia, easy bleeding, or history of blood clots. ALLERGIC/IMMUNOLOGIC: No hives or skin allergy. <Zhanna Houston - Last Filed: 01/30/17 19:02> *Physical Exam - Vital Signs Last Vital Signs Temp Pulse Resp BP Pulse Ox 98.2 F 72 19 126/79 100 01/30/17 12:30 01/30/17 12:30 01/30/17 12:30 01/30/17 12:30 01/30/17 12:30 <Zhanna Houston - Last Filed: 01/30/17 19:02> - Vital Signs Last Vital Signs Temp Pulse Resp BP Pulse Ox 98.2 F 72 19 126/79 100 01/30/17 12:30 01/30/17 12:30 01/30/17 12:30 01/30/17 12:30 01/30/17 12:30 - Physical Exam Comments: GENERAL: Awake, alert, and fully oriented, in no acute distress HEAD: No signs of trauma EYES: PERRLA, EOMI, sclera anicteric, conjunctiva clear ENT: Auricles normal inspection, hearing grossly normal, nares patent, oropharynx clear without exudates. Moist mucosa NECK: Normal ROM, supple, no lymphadenopathy, JVD, or masses LUNGS: Breath sounds equal, clear to auscultation bilaterally. No wheezes, and no crackles HEART: Regular rate and rhythm, normal S1 and S2, no murmurs, rubs or gallops ABDOMEN: Soft, nontender, normoactive bowel sounds. No guarding, no rebound. No masses EXTREMITIES: Normal range of motion, no edema. L popliteal tenderness. No clubbing or cyanosis. No cords, erythema, or tenderness NEUROLOGICAL: Cranial nerves II through XII grossly intact. Normal speech, motor and sensation intact. SKIN: Warm, Dry, normal turgor, no rashes or lesions noted. <Martha Abbasi - Last Filed: 02/03/17 09:31> ED Treatment Course - RADIOLOGY Radiograph Interpretation: 01/30/17 19:02 EXAM#: TYPE/EXAM: RESULT: [id number] US/DUPLEX VASCUL US-1 LEG HISTORY PROVIDED: Pain and swelling left lower extremity. Real time and doppler evaluation of the left lower extremity demonstrates the following: There is occlusive thrombus within the popliteal and posterior tibial veins. No flow is identified within these vessels. There is no evidence of deep venous thrombosis within the common, deep and superficial femoral veins. These veins are fully compressible, as well. IMPRESSION: DVT within the left popliteal and posterior tibial veins. Reported By: Calvin Deluca MD 01/30/17 [id number] <Zhanna Houston - Last Filed: 01/30/17 19:02> Medical Decision Making - Medical Decision Making 01/30/17 17:13 Disucssed with DESHAWN Wilburn at Dr. Hollingsworth's office. She expressed concern the patient was still having pain, given the finding of DVT. Patient has been taking lovenox , wanted her to be transitioned to coumadin. We discussed NOAC instead, as it will not require a bridge. I contacted patient's pharmacy. Xarelto is covered under her insurance. Will change to Xarelto. Will give pain medication and check repeat DVT study in ED. 01/30/17 19:08 Patient able to ambulate. Will treat with pain medication. Xarelto in pharmacy. DVT study did not previously show posterior tibial, which is now visualized, showed DVT. F/u as outpatient. <Martha Abbasi - Last Filed: 02/03/17 09:31> *DC/Admit/Observation/Transfer - Attestations Scribe Attestion: 01/30/17 16:30 Documentation prepared by MAREN Hood, acting as medical photographer for Martha Abbasi MD.. <Zhanna Houston - Last Filed: 01/30/17 19:02> - Discharge Dispostion Admit: No <Martha Abbasi - Last Filed: 02/03/17 09:31> Diagnosis at time of Disposition: DVT (deep venous thrombosis) Qualifiers: DVT location: lower extremity Affected thrombotic vein of extremity: unspecified vein of extremity Chronicity: acute Laterality: left Qualified Code( s): I82.402 - Acute embolism and thrombosis of unspecified deep veins of left lower extremity - Discharge Dispostion Disposition: HOME Condition at time of disposition: Stable - Prescriptions Prescriptions: Tramadol HCl 1 - 2 tab PO Q6H PRN #20 tablet MDD 8 tabs PRN Reason: Pain - Referrals Referrals: Keri Hollingsworth MD [Primary Care Provider] - - Patient Instructions Printed Discharge Instructions: DI for Deep Vein Thrombosis Additional Instructions: Xarelto- Take 15 mg twice a day for 3 weeks (from Jan 30- Feb 20), then switch to 20 mg tabs, which you will take daily. ONCE YOU START THE XARELTO, STOP LOVENOX!!
[2017-01-30] MEDS ORDERED: ACETAMINOPHEN 325 MG TABLET (FP) PO ONE ×2 (16:24→19:01)
[2017-01-30] MEDS ORDERED: traMADol HCL 50 MG TABLET PO ONE ×2 (16:25→19:01)
[2017-01-30] MEDS ORDERED: ACETAMINOPHEN 325 MG TABLET (FP) ONE ×2 (16:35→19:04)
[2017-01-30] MEDS ORDERED: traMADol HCL 50 MG TABLET ONE ×2 (16:35→19:04)
[2017-01-30 19:09] VITALS: BP 161/74; PULSE 75
== END 2017-01-30 19:11 | disposition home or self-care (01) ==
LOC: JER 12:19
DX: I82.402 Acute embolism and thrombosis of unspecified deep veins of left lower extremity (principal); E11.9 Type 2 diabetes mellitus without complications; I10 Essential (primary) hypertension; E78.5 Hyperlipidemia, unspecified; Z79.01 Long term (current) use of anticoagulants
CPT/HCPCS: 93971-TC; 99281-25